=== PATIENT | female | born 1980 | race Two or more races ===

== ENCOUNTER 2017-07-08 16:49 | Emergency (ER) | payer MEDICAID ==
[~2017-07-08] VITALS: Ht 172.7 cm; Wt 115.7 kg
--- NOTE | 2017-07-08 17:18 | ER Report ---
History and Physical Time Seen By MD: 17:18 HPI/ROS CHIEF COMPLAINT: Right posterior knee pain HISTORY OF PRESENT ILLNESS: This is a 37-year-old female who presents to the emergency department for right posterior knee pain. Patient states that about 2 days ago she developed some right knee posterior knee pain and into the calf. She also noticed that her right calf and knee looked slightly larger than the left. She did talk to her primary care provider about this and they sent her over to the emergency department for further evaluation. Patient states that her knee is "achy". Patient has no other complaints no nausea, vomiting, diarrhea, aches, chills or diarrhea. REVIEW OF SYSTEMS: Constitutional: No fever, no chills. Eyes: No discharge. ENT: No sore throat. Cardiovascular: No chest pain, no palpitations. Respiratory: No cough, no shortness of breath. Gastrointestinal: No abdominal pain, no vomiting. Genitourinary: No hematuria. Musculoskeletal: As above. Skin: No rashes. Neurological: No headache. Allergies: Coded Allergies: codeine (Verified Allergy, Severe, FACE SWELLS, HYPERVENTILATE, DIFFICULTY BREATHING, 07/08/17) prednisone (Verified Allergy, Severe, LOSES SIGHT, 07/08/17) aspirin (Verified Allergy, Mild, 07/08/17) difficulty breathing Home Meds Active Scripts Lisinopril (LISINOPRIL) 10 Mg Tablet, 10 MG PO QDAY, #90 TAB 3 Refills Prov:DAVE APODACA MD 07/02/17 Glimepiride (GLIMEPIRIDE) 4 Mg Tablet, 4 MG PO QDAY, #90 TAB 3 Refills Prov:DAVE APODACA MD 07/02/17 Blood Sugar Diagnostic (BLOOD GLUCOSE TEST STRIP) 1 Each Strip, 1 EACH MC DAILY , #1 BOTTLE 11 Refills Prov:ALINE NINO APRN EDUCATION ANALYST-C 06/18/17 Lancets (FREESTYLE LANCETS) 1 Each Each, EACH MC DAILY, #1 11 Refills Prov:ALINE NINO APRN EDUCATION ANALYST-C 06/18/17 Fluticasone Prop 50 Mcg Ns (FLONASE 50 MCG NS) 16 Gm [place].susp, 1 SPRAY NS BID , #1 BOT 11 Refills Prov:DAVE APODACA MD 06/17/17 Diclofenac Sodium (DICLOFENAC SODIUM) 75 Mg Tablet.dr, 75 MG PO BID, #60 TAB Prov:DAVE APODACA MD 06/17/17 Insulin Glargine,Hum.rec.anlog (LANTUS SOLOSTAR) 100 Unit/1 Ml Insuln.pen, 20 UNIT SQ QHS, #1 CART Increase by 2 units every 2 days until fasting glucose is 130 or less. Maximum is 100 units. Prov:DAVE APODACA MD 06/17/17 Pen Needle, Diabetic, Safety (PEN NEEDLE) 1 Each Dis.needle, EACH , #90 3 Refills Prov:DAVE APODACA MD 06/17/17 Reported Medications Ibuprofen (IBUPROFEN) 200 Mg Tablet, 2-3 TAB PO Q6H, TAB 12/29/16 Past Medical/Surgical History Patient has a past medical and surgical history of GERD, UTIs, arthritis, broken back, chronic low back pain, diabetes type II, eczema. Reviewed Nurses Notes: Yes Hx Smoking: Yes (0.5 ppd, 20 years (used to be 1.5 ppd)) Smoking Status: Current: Every Day Smoker Exposure to Second Hand Smoke?: Yes Hx Substance Use Disorder: No Hx Alcohol Use: No Constitutional Vital Sign - Last 24 Hours 07/08/17 07/08/17 07/08/17 07/08/17 17:23 17:51 18:00 18:04 Temp 97.5 Pulse 88 76 Resp 14 B/P (MAP) 149/95 134/87 (103) 137/84 (101) Pulse Ox 96 96 O2 Delivery Room Air 07/08/17 07/08/17 07/08/17 07/08/17 18:19 18:30 18:54 19:00 Pulse 69 72 B/P (MAP) 124/78 (93) 123/70 (87) Pulse Ox 92 96 Physical Exam General Appearance: The patient is alert, has no immediate need for airway protection and no signs of toxicity. Eyes: Pupils equal and round no pallor or injection. ENT, Mouth: Mucous membranes are moist. Respiratory: There are no retractions, lungs are clear to auscultation. Cardiovascular: Regular rate and rhythm, no murmurs, clicks or rubs. Gastrointestinal: Abdomen is soft and non tender, no masses, bowel sounds normal. Neurological: Alert and oriented 4. Moving all extremities. Following all commands. No focal neuro deficits. Skin: Warm and dry, no rashes. Musculoskeletal: Neck is supple non tender. Extremities are nontender, nonswollen and have full range of motion. Left calf 42 cm, right calf 43 cm. Left knee 43 cm, right knee 46.5 cm. DIFFERENTIAL DIAGNOSIS: After history and physical exam differential diagnosis was considered for DVT, septic knee, cellulitis, muscle strain. Medical Decision Making EKG/Imaging Imaging PATIENT NAME: Jomar Morrell : 1980 MR: [id number] V: [id number] EXAM DATE: ORDERING PHYSICIAN: JUAN MALONE TECHNOLOGIST: Location: [facility] Patient: Jomar Morrell : 1980 Visit/Account:[id number] Date of Sevice: 07/08/2017 EXAMINATION: Right LOWER EXTREMITY VENOUS DOPPLER ULTRASOUND DATE: 07/08/2017 6:54 PM CLINICAL INFORMATION: Calf pain and swelling. REASON FOR STUDY: Evaluate for DVT. TECHNIQUE: Grayscale, color Doppler, and spectral Doppler ultrasound was performed of the lower extremity veins to evaluate for deep venous thrombosis. COMPARISON: None FINDINGS: The right common femoral, femoral, and popliteal veins are compressible with normal flow on color Doppler imaging. There is also normal Doppler flow of the profunda femoris and greater saphenous veins at the confluence with the common femoral vein. The right posterior tibial and peroneal veins demonstrate normal flow IMPRESSION: No evidence of deep venous thrombosis in the right lower extremity veins. Report Dictated By: Kimmy Fiore MD at 07/08/2017 6:54 PM Report E-Signed By: Kimmy Fiore MD at 07/08/2017 6:56 PM [id number] ED Course/Re-evaluation ED Course The patient was admitted to a room. A history of physical were obtained. Differential diagnoses were considered. An ultrasound of the right lower extremity was negative for DVT. I did review these results with the patient. The patient was given 1 g of Tylenol in the emergency department for her achy leg. Patient was instructed to follow-up with her primary care provider tomorrow for the calf pain and possibly drawing blood. Patient was also encouraged to return to the emergency department for any other concerns or worsening symptoms she may have. She had no other questions or concerns and was discharged home. Decision to Disposition Date: Jul 08, 2017 Decision to Disposition Time: 19:24 Depart Departure Latest Vital Signs Vital Signs Date Time Temp Pulse Resp B/P (MAP) Pulse Ox O2 Delivery O2 Flow Rate FiO2 07/08/17 19:00 123/70 (87) 07/08/17 18:54 72 96 07/08/17 17:23 97.5 14 Room Air Impression: Primary Impression: Right calf pain Condition: Improved Disposition: HOME OR SELF-CARE Referrals: DAVE APODACA MD (PCP) Patient Instructions: Muscle Cramp (ED) Additional Instructions: Drink plenty of water. Get plenty of rest. Follow-up with your primary care provider tomorrow to see if she would like to do blood work for the calf pain. The ultrasound of the right calf was negative for a clot. May return to the emergency department for any other concerns or worsening symptoms. JUAN MALONE EDUCATION ANALYST-BC Jul 08, 2017 17:18
[2017-07-08 19:00] VITALS: BP 123/70
--- NOTE | 2017-07-08 19:01 | RADIOLOGY IMAGING REPORT ---
FACILITY: [facility] [place] PATIENT NAME: Jomar Morrell : 1980 MR: [id number] V: [id number] EXAM DATE: ORDERING PHYSICIAN: JUAN MALONE TECHNOLOGIST: Location: [facility] [place] Patient: Jomar Morrell : 1980 Visit/Account:[id number] Date of Sevice: 07/08/2017 EXAMINATION: Right LOWER EXTREMITY VENOUS DOPPLER ULTRASOUND DATE: 07/08/2017 6:54 PM CLINICAL INFORMATION: Calf pain and swelling. REASON FOR STUDY: Evaluate for DVT. TECHNIQUE: Grayscale, color Doppler, and spectral Doppler ultrasound was performed of the lower extre mity veins to evaluate for deep venous thrombosis. COMPARISON: None FINDINGS: The right common femoral, femoral, and popliteal veins are compressible with normal flow on color Dop pler imaging. There is also normal Doppler flow of the profunda femoris and greater saphenous veins a t the confluence with the common femoral vein. The right posterior tibial and peroneal veins demonstrate normal flow IMPRESSION: No evidence of deep venous thrombosis in the right lower extremity veins. Report Dictated By: Kimmy Fiore MD at 07/08/2017 6:54 PM Report E-Signed By: Kimmy Fiore MD at 07/08/2017 6:56 PM [id number]
[2017-07-08] MEDS ORDERED: ACETAMINOPHEN 500 MG TAB PO ONE (19:15)
== END 2017-07-08 19:30 | disposition home or self-care (01) ==
LOC: ER 17:18
DX: M79.661 Pain in right lower leg (principal)
CPT/HCPCS: 99282

== ENCOUNTER → 2017-07-08 | Outpatient (CLI) | payer MEDICAID ==
[~2017-07-08] MED LIST: AMO500 PO; AMOX1TAB9; AUG500 PO; AUG875 PO; AZIT-101 PO; BACDS PO; BLOO-1037 MC; BLOO-1511 MC; CEP500 PO; CIP500 PO; CIPR-344 PO; CLI150 PO; CYC10 PO; CYCL-343 PO; CYCL10TA29 PO; DIAZ-305 PO; DICL-195 PO; DOXY-179 PO; FAMO-129 PO; FEXO-72 PO; FLU60SYR30 IM ONLY; FLUC100T35 PO; FLUC150T40 PO; FLUT16SP19 NS; GIC PO; GLIM2TAB43 PO; GLIM4TAB50 PO; GUAI118L14 PO; HYD2 PO; HYDR-3078 PO; HYDR-385 PO; HYDR-4305 PO; HYDR-4309 PO; HYDR25CA83 PO; IBUP-56 PO; IBUP800T37 PO; INSU100I30 SQ; KET10 PO; LANC-1295 MC; LANC-714 MC; LANS30CA70 PO; LEVO-85 PO; LIDO20SO25 MM; LISI-362 PO; LOR5 PO; LOR5/325 PO; LOR7.5/325 PO; LOR75 PO; MEDROL DOSE PACK; METF500T4 PO; MUPI22OI TP; NAP500 PO; NAPR-1043 PO; NAS20R NS; NO ROUTINE MEDS; NO RTN MEDS; OMEP-218 PO; ONDA4TAB PO; OXYC-865 PO; PAN20 PO; PAN40 PO; PEN1DIS. MC; PEN250 PO; PER PO; PHEN200T32 PO; PRED-314 PO; PRED20TA6 PO; PRO25 PO; PROM-110 PO; PROP20TA56 PO; RAN150 PO; RIZA10TA24 PO; SUC1 PO; SULF-198 PO; SUMA100T32 PO; TOPI-119 PO; TRA50 PO; TRAM-420 PO; VAL500 PO; ZOSTRIX HP56.6 GM TP; [UNRECOGNIZED DRUG - CODE] MC
== END ==
LOC: LAB 13:41
PROVIDERS: ATTEND Emergency Medicine
DX: Z02.9 Encounter for administrative examinations, unspecified (principal)

== ENCOUNTER → 2017-07-19 | Outpatient (CLI) | payer MEDICAID ==
[~2017-07-19] MED LIST changes: +AMOX-559 PO; +DOCU-416 PO; +INSU100I28 SQ; +OXYC-854 PO
[2017-07-19 17:16] LABS: PLATELET COUNT, AUTOMATED 244 K/uL (150-450)
== END ==
LOC: LAB 17:00
PROVIDERS: ATTEND Emergency Medicine
DX: M25.561 Pain in right knee (principal)
CPT/HCPCS: 36415; 82040; 82247; 82310; 82374; 82435; 82565; 82947; 84075; 84132; 84155; 84295; 84450; 84460; 84520; 85025; 86140

== ENCOUNTER → 2017-07-20 | Outpatient (CLI) | payer MEDICAID ==
[~2017-07-20] MED LIST changes: -AMOX-559 PO; -DOCU-416 PO; -INSU100I28 SQ; -OXYC-854 PO
--- NOTE | 2017-07-20 13:42 | RADIOLOGY IMAGING REPORT ---
FACILITY: [facility] PATIENT NAME: Jomar Morrell : 1980 MR: [id number] V: [id number] EXAM DATE: ORDERING PHYSICIAN: DAVE APODACA TECHNOLOGIST: [place] [facility] [place] Joamr Mor[place] : 1980 Visit/Account:[id number] Date of Sevice: 07/20/2017 CT ABDOMEN WITHOUT CONTRAST CLINICAL INFORMATION: Umbilical hernia pain TECHNIQUE: Axial CT images were obtained through the abdomen without administration of IV contrast. Reformatted coronal and sagittal images were also obtained. Dose Lowering Technique One of the following dose optimization techniques was utilized in the performance of this exam: Autom ated exposure control; adjustment of the mA and/or kV according to the patient's size; or use of an i terative reconstruction technique. Specific details can be referenced in the facility's radiology C T exam operational policy. COMPARISON: The 2016 FINDINGS: Lower lung brooks: Small amount of left basilar linear scarring unchanged Evaluation of the solid organs of the abdomen is limited without IV contrast. Liver: Appears unremarkable on this noncontrasted CT Biliary: Gallbladder appears contracted which could be related to a recent meal Pancreas: Normal appearance. Spleen: Accessory splenules Adrenal glands: Unremarkable. Kidneys / retroperitoneum: No evidence of nephrolithiasis or hydronephrosis Bowel / peritoneum / mesenteries: The visualized small and large bowel appear unremarkable. Lymph node assessment: There are shotty retroperitoneal lymph nodes although appears similar to the p rior study Vessels: No significant atherosclerotic calcification seen throughout a nonaneurysmal abdominal aorta and branches. Musculoskeletal / Body wall: There is an umbilical hernia containing fat.. There Also appears to be some omental fat that extends through the umbilical hernia opening however passes through the rectus sheath superior to the umbilicus. There is surrounding edema in the adjacent subcutaneous fat. Ther e is diastases of the abdominis rectus muscles in the infraumbilical region similar to the prior stud y IMPRESSION: 1. There is an umbilical hernia containing fat. There also appears to be some omental fat that has extended through the umbilical hernia opening however passes through the rectus sheath superior to th e umbilicus with surrounding edema in the subcutaneous fat.. This is best appreciated on the sagitta l images. Also noted is diastases of the abdominis rectus muscles in the infraumbilical region although similar to the prior study Shotty which peroneal lymph nodes appear stable Gallbladder appears contracted which could be related to a recent meal Report Dictated By: Zoë Solitario MD at 07/20/2017 12:56 PM Report E-Signed By: Zoë Solitario MD at 07/20/2017 1:37 PM KACYN:[email or web address]
== END ==
LOC: CT 11:11
PROVIDERS: ATTEND Emergency Medicine
DX: K42.9 Umbilical hernia without obstruction or gangrene (principal); R91.8 Other nonspecific abnormal finding of lung field
CPT/HCPCS: 74150

== ENCOUNTER 2017-08-13 15:52 | Emergency (ER) | payer MEDICAID ==
[2017-08-13] MEDS ORDERED: HYDROmorphone(ER ONLY) 1 MG/ML IVP ONE ×2 (16:15→16:50)
--- NOTE | 2017-08-13 16:21 | ER Report ---
History and Physical Time Seen By MD: 16:02 Hx. of Stated Complaint: HAD A CORTIZONE SHOT IN RIGHT KNEE AT 12:30 TODAY. PAIN IS UNBEARABLE AND KNEE IS SWELLING HPI/ROS CHIEF COMPLAINT: knee pain post cortisone injection HISTORY OF PRESENT ILLNESS: Pt has a bad right knee that she states she is follwed by Dr. Kemp at [facility]. Today at 1230 she had injection of cortisone into her r knee. PT has a known predisone allergy but states that she was told cortisone should be ok. States that she felt fine initially but soon after started wtih pain. Pts pain is getting worse and now with knee swelling. PT uncomfortable sharp and achy pain. No fevers. Pt crying due to pain. Pt called [facility] and was told it could be a reaction and sent to ed. REVIEW OF SYSTEMS: GEn: no fevers Muscleskeletal: + knee swelling, + knee pain Allergies: Coded Allergies: codeine (Verified Allergy, Severe, FACE SWELLS, HYPERVENTILATE, DIFFICULTY BREATHING, 08/13/17) prednisone (Verified Allergy, Severe, LOSES SIGHT, 08/13/17) aspirin (Verified Allergy, Mild, 08/13/17) difficulty breathing Home Meds Active Scripts Oxycodone Hcl/Acet 5/325 Mg (ENDOCET 5-325 TABLET) 1 Each Tablet, 1-2 EACH PO Q4 -6H Y for PAIN, #20 TAB Prov:AKUA BEE DO 08/13/17 Diclofenac Sodium (DICLOFENAC SODIUM) 75 Mg Tablet.dr, 75 MG PO BID, #60 TAB Prov:DAVE APODACA MD 08/02/17 Insulin Glargine,Hum.rec.anlog (LANTUS SOLOSTAR) 100 Unit/1 Ml Insuln.pen, 44 UNIT SQ QHS, #1 CART Increase by 2 units every 2 days until fasting glucose is 130 or less. Maximum is 100 units. Prov:DAVE APODACA MD 07/19/17 Lisinopril (LISINOPRIL) 10 Mg Tablet, 10 MG PO QDAY, #90 TAB 3 Refills Prov:DAVE APODACA MD 07/02/17 Glimepiride (GLIMEPIRIDE) 4 Mg Tablet, 4 MG PO QDAY, #90 TAB 3 Refills Prov:DAVE APODACA MD 07/02/17 Blood Sugar Diagnostic (BLOOD GLUCOSE TEST STRIP) 1 Each Strip, 1 EACH MC DAILY , #1 BOTTLE 11 Refills Prov:ALINE NINO APRNP-C 06/18/17 Lancets (FREESTYLE LANCETS) 1 Each Each, EACH MC DAILY, #1 11 Refills Prov:ALINE NINO APRN SPECIAL EDUCATION SUPERVISOR-C 06/18/17 Fluticasone Prop 50 Mcg Ns (FLONASE 50 MCG NS) 16 Gm [place].susp, 1 SPRAY NS BID , #1 BOT 11 Refills Prov:DAVE APODACA MD 06/17/17 Pen Needle, Diabetic, Safety (PEN NEEDLE) 1 Each Dis.needle, EACH MC, #90 3 Refills Prov:DAVE APODACA MD 06/17/17 Reported Medications Ibuprofen (IBUPROFEN) 200 Mg Tablet, 2-3 TAB PO Q6H, TAB 12/29/16 Past Medical/Surgical History pmhx: dm, htn, pud, hernia Pshx: non contrib Reviewed Nurses Notes: Yes Old Medical Records Reviewed: Yes Hx Smoking: Yes (0.5 ppd, 20 years (used to be 1.5 ppd)) Smoking Status: Current: Every Day Smoker Exposure to Second Hand Smoke?: Yes Hx Substance Use Disorder: No Hx Alcohol Use: No Constitutional Vital Sign - Last 24 Hours 08/13/17 08/13/17 08/13/17 08/13/17 16:03 16:04 16:07 16:22 Temp 100.0 Pulse 115 99 ??? Resp 20 B/P (MAP) 146/101 146/101 (116) Pulse Ox 95 94 O2 Delivery Room Air 08/13/17 08/13/17 08/13/17 08/13/17 16:36 16:37 16:52 17:07 Pulse 89 88 ??? B/P (MAP) 150/75 (100) Pulse Ox 95 97 Intake and Output 08/13/17 08/13/17 08/14/17 15:00 23:00 07:00 Intake Total 50 ml Balance 50 ml Physical Exam General appearance: Alert no distress. Right knee: There is mild swelling. There is small effusion. There is no obvious deformity of the knee. There is moderate tenderness to the patella. The joint is stable with no comparable ligamentous laxity to the knee but pain with range of motion There is no tenderness proximal or distal to the knee. Neurologic exam: The patient has normal sensation distal to the injury. Vascular exam: Normal pulses and capillary refill in the foot DIFFERENTIAL DIAGNOSIS: After history and physical exam differential diagnosis was considered for medication reaction, infection Medical Decision Making ED Course/Re-evaluation Clinical Indication for ER IV: IV Access ED Course 08/13/2017 4:24:[address] Samayoa, orthopedics color control operator for [facility], who states it is likely an allergic reaction which could cause pain for 24 hours or so then improve. Recommend benadryl and toradol. Did not feel infection would be causing the pain so close to the injection. 08/13/2017 4:35:30 pm Spoke wt pt and she refusing toradol due to pt has surgery next week for hernia repair and was told to take no NSAIDs. she is agreeable to benadryl. states she has had percocet before and it helped. 08/13/2017 4:50:57 pm Pt still in pain. Pt is willing to have morphine or dilaudid. states her allergy is a headache "i prefer to have a headache then my knee pain". 08/13/2017 5:00:[address] Samayoa , orthopedics is in the room seeing the patient. 08/13/2017 5:05:[address] Samayoa recommend benadryl for next 24 hours and pain medication. Decision to Disposition Date: Aug 13, 2017 Decision to Disposition Time: 17:20 Depart Departure Latest Vital Signs Vital Signs Date Time Temp Pulse Resp B/P (MAP) Pulse Ox O2 Delivery O2 Flow Rate FiO2 08/13/17 17:07 ??? 08/13/17 16:52 97 08/13/17 16:36 150/75 (100) 08/13/17 16:03 100.0 20 Room Air Impression: Primary Impression: Adverse reaction to drug Additional Impression: Knee pain, acute Condition: Improved Disposition: HOME OR SELF-CARE Referrals: DAVE APODACA MD (PCP) [facility] PT 5 Days New Scripts Oxycodone Hcl/Acet 5/325 Mg (ENDOCET 5-325 TABLET) 1 Each Tablet 1-2 EACH PO Q4-6H Y for PAIN, #20 TAB Prov: AKUA BEE DO 08/13/17 Patient Instructions: Adverse Drug Reaction (GEN) Additional Instructions: You are having an adverse reaction to your cortisone shot. Benadryl 25 mg every 6 hours for next 24 hours then use as needed for pain and swelling. Percocet one or two every 4 hours as needed for pain. Follow up with [facility]. Return as needed. Problem Qualifiers Primary Impression: Adverse reaction to drug Encounter type: initial encounter Qualified Codes: T88.7XXA - Unspecified adverse effect of drug or medicament, initial encounter Additional Impression: Knee pain, acute Laterality: right Qualified Codes: M25.561 - Pain in right knee AKUA BEE DO Aug 13, 2017 16:20
[2017-08-13] MEDS ORDERED: diphenhydrAMINE 50 MG/ML VIAL IVP ONE (16:25)
[2017-08-13] MEDS ORDERED: KETOROLAC 30 MG/ML VIAL IVP ONE (16:25)
[2017-08-13] MEDS ORDERED: FAMOTIDINE(*) 20MG/50ML PREMIX 50 ML IVPB ONE (16:30)
[2017-08-13] MEDS ORDERED: PER PO ×2 (17:09→17:11)
[2017-08-13] MEDS ORDERED: OXYC-854 PO (17:12)
[2017-08-13] MEDS ORDERED: oxyCODONE/ACETAMIN 5/325MG TH 2 TAB/BOTTLE PO ONE (17:25)
[2017-08-13 17:32] VITALS: BP 132/85
[2017-08-14] MEDS ORDERED: INSU100I28 SQ (22:54)
== END 2017-08-13 17:37 | disposition home or self-care (01) ==
LOC: ER 16:11
DX: T88.7XXA Unspecified adverse effect of drug or medicament, initial encounter (principal); M25.561 Pain in right knee
CPT/HCPCS: 96374; 96375; 99283; J1170; J1200; J3490

== ENCOUNTER 2017-08-14 20:11 | Emergency (ER) | payer MEDICAID ==
[~2017-08-14] VITALS: Ht 172.7 cm; Wt 115.2 kg
[~2017-08-14 20:11] MED LIST changes: +OXYC-854 PO
--- NOTE | 2017-08-14 20:22 | ER Report ---
History and Physical Time Seen By MD: 20:21 HPI/ROS CHIEF COMPLAINT: elevated blood sugars. HISTORY OF PRESENT ILLNESS: This is a 37 year old female. She had a steroid injection in her knee and has had consistently elevated blood sugars since then. Today has been in the 300s and up above 400 as well. Polydipsia and polyuria. She take Lantus, but does not take short acting insulin. She talked to the primary care provider mercerizing range controller who said she should come to the ER for further evaluation. She has no chest pain, shortness of breath, or cough. No fevers. She did have an adverse reaction to the knee steroid injection because she is allergic to prednisone. She has had no altered mental status or confusion. Allergies: Coded Allergies: codeine (Verified Allergy, Severe, FACE SWELLS, HYPERVENTILATE, DIFFICULTY BREATHING, 08/14/17) prednisone (Verified Allergy, Severe, LOSES SIGHT, 08/14/17) aspirin (Verified Allergy, Mild, 08/14/17) difficulty breathing Home Meds Active Scripts Insulin Lispro 3 Ml Prefilled (HUMALOG 3 ML PEN) 100 Unit/1 Ml Insuln.pen, 100 UNIT SQ DIRECTED, #1 DIS.SYR 0 Refills Prov:UMAIR MELGAR MD 08/14/17 Oxycodone Hcl/Acet 5/325 Mg (ENDOCET 5-325 TABLET) 1 Each Tablet, 1-2 EACH PO Q4 -6H Y for PAIN, #20 TAB Prov:AKUA BEE DO 08/13/17 Diclofenac Sodium (DICLOFENAC SODIUM) 75 Mg Tablet.dr, 75 MG PO BID, #60 TAB Prov:DAVE APODACA MD 08/02/17 Insulin Glargine,Hum.rec.anlog (LANTUS SOLOSTAR) 100 Unit/1 Ml Insuln.pen, 44 UNIT SQ QHS, #1 CART Increase by 2 units every 2 days until fasting glucose is 130 or less. Maximum is 100 units. Prov:DAVE APODACA MD 07/19/17 Lisinopril (LISINOPRIL) 10 Mg Tablet, 10 MG PO QDAY, #90 TAB 3 Refills Prov:DAVE APODACA MD 07/02/17 Glimepiride (GLIMEPIRIDE) 4 Mg Tablet, 4 MG PO QDAY, #90 TAB 3 Refills Prov:DAVE APODACA MD 07/02/17 Blood Sugar Diagnostic (BLOOD GLUCOSE TEST STRIP) 1 Each Strip, 1 EACH MC DAILY , #1 BOTTLE 11 Refills Prov:ALINE NINO APRN-C 06/18/17 Lancets (FREESTYLE LANCETS) 1 Each Each, EACH MC DAILY, #1 11 Refills Prov:ALINE NINO APRN RECEIVABLE MANAGER-C 06/18/17 Fluticasone Prop 50 Mcg Ns (FLONASE 50 MCG NS) 16 Gm [place].susp, 1 SPRAY NS BID , #1 BOT 11 Refills Prov:DAVE APODACA MD 06/17/17 Pen Needle, Diabetic, Safety (PEN NEEDLE) 1 Each Dis.needle, EACH MC, #90 3 Refills Prov:DAVE APODACA MD 06/17/17 Discontinued Reported Medications Ibuprofen (IBUPROFEN) 200 Mg Tablet, 2-3 TAB PO Q6H, TAB 12/29/16 Reviewed Nurses Notes: Yes Hx Smoking: Yes (0.5 ppd, 20 years (used to be 1.5 ppd)) Smoking Status: Current: Every Day Smoker Exposure to Second Hand Smoke?: Yes Hx Substance Use Disorder: No Hx Alcohol Use: No Constitutional Vital Sign - Last 24 Hours 08/14/17 08/14/17 08/14/17 08/14/17 20:16 20:26 20:41 20:56 Temp 98.2 Pulse 84 82 82 77 Resp 20 B/P (MAP) 142/71 Pulse Ox 96 95 95 94 08/14/17 08/14/17 08/14/17 08/14/17 21:11 21:26 21:31 21:46 Pulse 75 75 74 68 Pulse Ox 95 95 97 96 08/14/17 08/14/17 08/14/17 08/14/17 22:01 22:16 22:21 22:36 Pulse 63 66 67 68 Pulse Ox 95 94 93 92 08/14/17 08/14/17 08/14/17 22:51 23:06 23:21 Pulse 68 61 66 Pulse Ox 94 97 94 Physical Exam General Appearance: The patient is alert. No acute distress. Non-toxic in appearance. Eyes: Pupils are equal, round. No pallor, injection or icterus. ENT: Mucous membranes are moist. Normal oral mucosa. Posterior oropharynx is normal. Respiratory: Lungs are clear to auscultation. Breathing easily, nonlabored. Cardiovascular: Regular rate and rhythm. No murmurs, gallops or rubs. Gastrointestinal: Abdomen is soft and non tender. Nondistended. Normal active bowel sounds. Neurological: Alert and oriented x3. No focal neurologic deficits Skin: Warm and dry. DIFFERENTIAL DIAGNOSIS: After history and physical exam, differential diagnosis was considered for hyperglycemia due to the steroid injection she had recently. Vital signs look good and there is no sign of toxicity. Discussed with the patient the need to add in some short acting insulin now for coverage while her sugars are high, and may be something to consider windows administrator as well. Medical Decision Making Data Points Laboratory Hematology Test 08/14/17 22:48 Whole Blood Glucose 290 mg/DL (75-110) Chemistry Test 08/14/17 22:48 Whole Blood Glucose 290 mg/DL (75-110) ED Course/Re-evaluation ED Course Several blood sugars given. Patient was given Humalog 8units subcutaneous injection and monitored sugars for a few hours. Vitals remained stable and her blood sugar came down well, although we were cautious to not be too aggressive. Sliding scale insulin instructions given for her to use until she follows up with her primary care provider. Decision to Disposition Date: Aug 14, 2017 Decision to Disposition Time: 22:15 Depart Departure Latest Vital Signs Vital Signs Date Time Temp Pulse Resp B/P (MAP) Pulse Ox O2 Delivery O2 Flow Rate FiO2 08/14/17 23:21 66 94 08/14/17 20:16 98.2 20 142/71 Impression: Primary Impression: Hyperglycemia due to type 2 diabetes mellitus Condition: Improved Disposition: HOME OR SELF-CARE Referrals: DAVE APODACA MD (PCP) New Scripts Insulin Lispro 3 Ml Prefilled (HUMALOG 3 ML PEN) 100 Unit/1 Ml Insuln.pen 100 UNIT SQ DIRECTED, #1 DIS.SYR 0 Refills Prov: UMAIR MELGAR MD 08/14/17 Patient Instructions: Diabetic Hyperglycemia (ED) Additional Instructions: We are going to have you start Humalog insulin that you will use on a sliding scale to cover for elevated blood sugars. Blood glucose level Insulin dose 80 - 200 no insulin 201 - 250 2 units 251 - 300 4 units 301 - 350 6 units 351 - 400 8 units 401 - 450 10 units above 450 12 units and call your doctor Problem Qualifiers Primary Impression: Hyperglycemia due to type 2 diabetes mellitus Diabetes mellitus assisted insulin use: with windows administrator use Qualified Codes: E11.65 - Type 2 diabetes mellitus with hyperglycemia; Z79.4 - USP ( current) use of insulin UMAIR MELGAR MD Aug 14, 2017 20:22
[2017-08-14] MEDS ORDERED: INS HUM LISPRO 100U/ML (ER ONLY) 10 ML VIAL SUBQ ONE (20:40)
[2017-08-14] MEDS ORDERED: INSU100I28 SQ (22:54)
[2017-08-14 23:27] VITALS: BP 123/73
== END 2017-08-14 23:30 | disposition home or self-care (01) ==
LOC: ER 20:26
DX: E11.65 Type 2 diabetes mellitus with hyperglycemia (principal); Z79.4 Long term (current) use of insulin
CPT/HCPCS: 36416; 82948; 96372; 99283; J1815

== ENCOUNTER 2017-08-19 03:46 | Day surgery (SDC) | payer MEDICAID ==
[~2017-08-19] VITALS: Ht 172.7 cm; Wt 112.5 kg
[~2017-08-19 03:46] MED LIST changes: +INSU100I28 SQ
[2017-08-19] MEDS ORDERED: ceFAZolin(*) 1 GM VIAL 3 GM in NS(*) 0.9% 100 ML BAG 100 ML IVPB ONE (06:45)
[2017-08-19] MEDS ORDERED: FAMOTIDINE 20 MG TAB PO ONE (06:45)
[2017-08-19] MEDS ORDERED: NORMOSOL R SOLN(*) 1000 ML BAG 1,000 ML IV PRN (06:45)
[2017-08-19] MEDS ORDERED: LIDOCAINE/SOD BICARB 8.4% SYR ID ONE (06:45)
[2017-08-19] MEDS ORDERED: MIDAZOLAM 2 MG/2 ML VIAL IVP PRN (06:45)
[2017-08-19] MEDS ORDERED: PROPOFOL EMUL(*) 10MG/ML 20 ML 20 ML ONE (09:42)
[2017-08-19] MEDS ORDERED: SUGAMMADEX SOD 200 MG/2 ML SDV ONE (09:42)
[2017-08-19] MEDS ORDERED: ONDANSETRON 4 MG/2 ML VIAL ONE (09:42)
[2017-08-19] MEDS ORDERED: DEXAMETHASONE SOD 4 MG/ML VIAL ONE (09:42)
[2017-08-19] MEDS ORDERED: ROCURONIUM BROM 10 MG/ML 10 ML ONE (09:42)
[2017-08-19] MEDS ORDERED: LIDOCAINE MPF 1% 5 ML VIAL ONE (09:42)
[2017-08-19] MEDS ORDERED: fentaNYL CITR 250 MCG/5 ML AMP ONE (09:43)
[2017-08-19 10:46] VITALS: BP 140/102
[2017-08-19] MEDS ORDERED: ROPIVACAINE 0.5% 20 ML VIAL ONE (11:01)
[2017-08-19] MEDS ORDERED: BACITRACIN OINT 15 GM TUBE TP ONE (11:02)
[2017-08-19] MEDS ORDERED: KETAMINE HCL 200 MG/20 ML MDV ONE (11:30)
[2017-08-19] MEDS ORDERED: OXYC-854 PO (12:11)
[2017-08-19] MEDS ORDERED: DOCU-416 PO (12:11)
--- NOTE | 2017-08-19 12:13 | Short(Outpt) Discharge Summary ---
Discharge Summary Reason for Hosp/Final Diag: (1) Umbilical hernia Status: Chronic Hospital Course & Plan: UH repaired without problems. Departure Discharge to: Home, Self Care Discharge Instructions Home Meds Active Scripts Docusate Sodium (COLACE) 100 Mg Capsule, 1 CAP PO BID, #30 CAPSULE 0 Refills Prov:KARLA HARRELL MD 08/19/17 Oxycodone Hcl/Acet 5/325 Mg (ENDOCET 5-325 TABLET) 1 Each Tablet, 1-2 TAB PO Q4H Y for PAIN, #30 TAB 0 Refills Prov:KARLA HARRELL MD 08/19/17 Insulin Lispro 3 Ml Prefilled (HUMALOG 3 ML PEN) 100 Unit/1 Ml Insuln.pen, 100 UNIT SQ DIRECTED, #1 DIS.SYR 0 Refills Prov:UMAIR MELGAR MD 08/14/17 Diclofenac Sodium (DICLOFENAC SODIUM) 75 Mg Tablet.dr, 75 MG PO BID, #60 TAB Prov:DAVE APODACA MD 08/02/17 Insulin Glargine,Hum.rec.anlog (LANTUS SOLOSTAR) 100 Unit/1 Ml Insuln.pen, 44 UNIT SQ QHS, #1 CART Increase by 2 units every 2 days until fasting glucose is 130 or less. Maximum is 100 units. Prov:DAVE APODACA MD 07/19/17 Lisinopril (LISINOPRIL) 10 Mg Tablet, 10 MG PO QDAY, #90 TAB 3 Refills Prov:DAVE APODACA MD 07/02/17 Glimepiride (GLIMEPIRIDE) 4 Mg Tablet, 4 MG PO QDAY, #90 TAB 3 Refills Prov:DAVE APODACA MD 07/02/17 Blood Sugar Diagnostic (BLOOD GLUCOSE TEST STRIP) 1 Each Strip, 1 EACH MC DAILY , #1 BOTTLE 11 Refills Prov:ALINE NINO APRN-C 06/18/17 Lancets (FREESTYLE LANCETS) 1 Each Each, EACH MC DAILY, #1 11 Refills Prov:ALINE NINO APRN-C 06/18/17 Fluticasone Prop 50 Mcg Ns (FLONASE 50 MCG NS) 16 Gm [place].susp, 1 SPRAY NS BID , #1 BOT 11 Refills Prov:DAVE APODACA MD 06/17/17 Pen Needle, Diabetic, Safety (PEN NEEDLE) 1 Each Dis.needle, EACH , #90 3 Refills Prov:PAULIEDAVE MD 06/17/17 Discontinued Reported Medications Ibuprofen (IBUPROFEN) 200 Mg Tablet, 2-3 TAB PO Q6H, TAB 12/29/16 Follow up Referrals: General Surgery - 09/03/17 @ Surgery, General with Karla Harrell Md You have a follow up appointment scheduled with Dr. Harrell on 09/03/17, at 9:15am. Diet: Regular Activity: No Heavy Lifting Special Instructions: You may remove the white surgical dressing on 08/21/17, then you can shower. After showering, leave the incision open to air but leave the steristrips in place until they fall off on their own. Do not immerse the incisions for 2 weeks. Avoid any activity that involves straining or lifting more than 10 pounds for 4 weeks after surgery. Problem Qualifiers (1) Umbilical hernia: Obstruction and gangrene presence: without obstruction or gangrene Qualified Codes: K42.9 - Umbilical hernia without obstruction or gangrene KARLA HARRELL MD Aug 19, 2017 12:13
[2017-08-19] MEDS ORDERED: fentaNYL CITR 100 MCG/2 ML AMP ONE ×2 (12:14→12:45)
--- NOTE | 2017-08-19 12:18 | Post Operative Progress Note ---
Post Operative Progress Note Date: Aug 19, 2017 Time: 12:13 Surgeon: Mehrdad Dictation number: [id number] Anesthesia: LMA by Dr. Nolan Pre-Op Diagnosis: UH Post-Op Diagnosis: WILLIAM Findings: C/W dx, 1cm defect Procedure(s): UH repair, no mesh Specimen Removed:(May be N/A): None Complications: None Fluids: See anesthesia record Estimated Blood Loss: Minimal Date OP Note Dictated: Aug 19, 2017 Time OP Note Dictated: 12:14 KARLA HARRELL MD Aug 19, 2017 12:18
[2017-08-19] MEDS ORDERED: PROMETHAZINE 25 MG/ML 1 ML AMP ONE (12:42)
[2017-08-19 13:21] VITALS: BP 126/77
[2017-08-19 13:27] VITALS: BP 134/79
[2017-08-19 13:28] VITALS: BP 128/90
--- NOTE | 2017-08-19 17:23 | OPERATIVE REPORT 1 ---
EVENT DATE: August 19, 2017 SURGEON: Anupam Cronin MD ANESTHESIOLOGIST: Cristhian Butcher MD ANESTHESIA: LMA. PREOPERATIVE DIAGNOSIS Umbilical hernia. POSTOPERATIVE DIAGNOSIS Umbilical hernia. PROCEDURE PERFORMED Umbilical hernia repair, no mesh. COMPLICATIONS None. CONDITION Stable. BLOOD LOSS Minimal. INDICATIONS This is a 37-year-old female who has been having periumbilical abdominal pain. She was seen in the Emergency Room where they did a CT scan which revealed an umbilical hernia. She was referred to me to discuss repair. DESCRIPTION OF PROCEDURE The patient was brought to the operating room and placed supine on the operating table. LMA anesthesia was administered, and her abdomen was prepped and draped in a sterile fashion. A timeout was completed, and I injected the supraumbilical skin with 0.5% ropivacaine plain. I made a curvilinear frowning face-type incision in the superior umbilical rim and dissected down through the dermis and subcutaneous fat. I dissected around the umbilicus and raised the umbilicus up from the underlying fascia, identified the fascial defect and cleaned this off both superficially and deep. The fascia was less than 1 cm in diameter. At this point, I elected not to put any mesh in as I would have had to make the defect bigger to put mesh in a retrofascial position. I then closed the fascial defect in a transverse fashion with interrupted 0 Ethibond sutures. I irrigated and dried the wound and then closed the skin with 4-0 Monocryl running subcuticular sutures. The skin was cleaned and dried, and Steri-Strips were applied, followed by a sterile surgical dressing. The patient was then awakened and LMA removed. She was transported to the recovery room in stable condition having tolerated the procedure without any apparent problems. ANUSHA
== END 2017-08-19 13:21 | disposition home or self-care (01) ==
LOC: OR 03:46
PROVIDERS: ATTEND Surgery
DX: K42.9 Umbilical hernia without obstruction or gangrene (principal); E11.9 Type 2 diabetes mellitus without complications; I10 Essential (primary) hypertension
CPT/HCPCS: 36415; 36416; 49585; 82948; 83036; J0690; J1100; J2001; J2405; J2550; J2704; J2795; J3010; J3490; J7050; 82310; 82374; 82435; 82565; 82947; 84132; 84295; 84520

== ENCOUNTER → 2017-09-15 | Outpatient (CLI) | payer MEDICAID ==
[~2017-09-15] MED LIST changes: +AMOX-559 PO; +DOCU-416 PO
[2017-09-15 10:02] LABS: PLATELET COUNT, AUTOMATED 262 K/uL (150-450)
--- NOTE | 2017-09-15 11:25 | EKG ---
FACILITY: [facility] PATIENT NAME: NAVARRO ALANIZ : [id number] MR: [id number] V: [id number] EXAM DATE: ORDERING PHYSICIAN: DAVE APODACA TECHNOLOGIST: ANDREINA Test Reason : CHEST PAIN Blood Pressure : / mmHG Vent. Rate : 070 BPM Atrial Rate : 070 BPM P-R Int : 150 ms QRS Dur : 090 ms QT Int : 400 ms P-R-T Axes : 007 055 038 degrees QTc Int : 432 ms Normal sinus rhythm Normal ECG When compared with ECG of 02-JUL-2016 19:38, Previous ECG has undetermined rhythm, needs review Referred By: Confirmed By:
--- NOTE | 2017-09-15 11:31 | RADIOLOGY IMAGING REPORT ---
FACILITY: [facility] PATIENT NAME: Jomar Morrell : 1980 MR: [id number] V: [id number] EXAM DATE: ORDERING PHYSICIAN: DAVE APODACA TECHNOLOGIST: Location: [facility] Patient: Jomar Morrell : 1980 Visit/Account:[id number] Date of Sevice: 09/15/2017 Exam type: SOFT TISSUE NON-SPECIFIC History: Abdomen pain in the periumbilical soft tissues Comparison: None. Findings: There is a periumbilical incision along the anterior abdominal wall. Just deep to the incision in th e location of swelling and erythema is a 2.2 x 1 x 2.9 cm collection which may represent a phlegmon, seroma or abscess. IMPRESSION: 1. 2.2 x 1 x 2.9 cm collection just deep to the periumbilical incision which could represent a phleg mon, seroma or abscess Report Dictated By: Zoë Solitario MD at 09/15/2017 11:26 AM Report E-Signed By: Zoë Solitario MD at 09/15/2017 11:28 AM WSN:[id number]
== END ==
LOC: LAB 09:33
PROVIDERS: ATTEND Emergency Medicine
DX: E11.9 Type 2 diabetes mellitus without complications (principal); R07.9 Chest pain, unspecified; R10.819 Abdominal tenderness, unspecified site
CPT/HCPCS: 76999; 82040; 82247; 82310; 82374; 82435; 82565; 82947; 83036; 84075; 84132; 84155; 84295; 84450; 84460; 84484; 84520; 85025; 85379

== ENCOUNTER 2018-03-04 16:10 | Emergency (ER) | payer MEDICAID ==
--- NOTE | 2018-03-04 16:25 | ER Report ---
History and Physical Time Seen By MD: 16:20 Hx. of Stated Complaint: N/V/D since Wednesday, cough productive of green sputum since Wed. HPI/ROS CHIEF COMPLAINT: Cough, shortness of breath, nausea, vomiting, back pain, abdominal pain. HISTORY OF PRESENT ILLNESS: 38-year-old female patient presents to emergency room with complaint of cough, shortness of breath, nausea, vomiting, back pain, abdominal pain. Patient states this been going on for the past 3 days. Patient states she's been having shortness of breath as well as fevers. She states that she often coughs so hard that she vomits. Patient has taken any medication for this. She did call her primary care's office to see what [id number] medication she take Toprol cough was directed to come to the emergency room. Patient states that any type of activities his make her more short of breath. She has not taken any medication for this as of this point. REVIEW OF SYSTEMS: Respiratory: As noted above Cardiovascular: No chest pain, no palpitations. Gastrointestinal: As noted above Musculoskeletal: No back pain. Allergies: Coded Allergies: codeine (Verified Allergy, Severe, FACE SWELLS, HYPERVENTILATE, DIFFICULTY BREATHING, 03/04/18) prednisone (Verified Allergy, Severe, LOSES SIGHT, 03/04/18) aspirin (Verified Allergy, Mild, 03/04/18) difficulty breathing Home Meds Active Scripts Albuterol Sulfate (VENTOLIN HFA) 18 Gm Inh, 2 PUFF INH Q4-6H PRN for SHORTNESS OF BREATH, #1 INH Prov:CLAUDIA DECKER [facility] 03/04/18 Hydrocodone Bit/Acetaminophen (HYDROCODON-ACETAMINOPHEN 5-325) 1 Each Tablet, 1 EACH PO Q4-6H PRN for PAIN, #10 TAB Prov:CLAUDIA DECKER [facility] 03/04/18 Azithromycin 250 Mg Tab (AZITHROMYCIN 250 MG TAB) 250 Mg Tablet, 1 TAB PO QDAY, #6 TAB Take 2 tabs today and then 1 tab a day until gone. Prov:CLAUDIA DECKER [facility] 03/04/18 Insulin Glargine 100 Un/Ml Pen (LANTUS SOLOSTAR PEN) 100 Unit/1 Ml Insuln.pen, 44 UNIT SQ QHS, #1 BOX 3 Refills Increase by 2 units every 2 days until fasting glucose is 130 or less. Maximum is 100 units. Prov:DAVE APODACA MD 09/27/17 Amoxicillin/Pot Clav 875-125 Mg Tab (AUGMENTIN 875-125 TABLET) 1 Each Tablet, 1 TAB PO Q12H, #20 TAB 0 Refills Prov:KARLA HARRELL MD 09/13/17 Blood Sugar Diagnostic (BLOOD GLUCOSE TEST STRIP) 1 Each Strip, 1 EACH MC QID, #1 BOTTLE 11 Refills Prov:DAVE APODACA MD 08/26/17 Lancets (FREESTYLE LANCETS) 1 Each Each, EACH QID, #1 11 Refills Prov:DAVE APODACA MD 08/26/17 Docusate Sodium (COLACE) 100 Mg Capsule, 1 CAP PO BID, #30 CAPSULE 0 Refills Prov:KARLA HARRELL MD 08/19/17 Insulin Lispro 100 Un/Ml Pen (HUMALOG 3 ML PEN) 100 Unit/1 Ml Insuln.pen, 100 UNIT SQ DIRECTED, #1 DIS.SYR 0 Refills Prov:UMAIR MELGAR MD 08/14/17 Diclofenac Sodium (DICLOFENAC SODIUM) 75 Mg Tablet.dr, 75 MG PO BID, #60 TAB Prov:DAVE APODACA MD 08/02/17 Lisinopril (LISINOPRIL) 10 Mg Tablet, 10 MG PO QDAY, #90 TAB 3 Refills Prov:DAVE APODACA MD 07/02/17 Glimepiride (GLIMEPIRIDE) 4 Mg Tablet, 4 MG PO QDAY, #90 TAB 3 Refills Prov:DAVE APODACA MD 07/02/17 Fluticasone Prop 50 Mcg Ns (FLONASE 50 MCG NS) 16 Gm [place].susp, 1 SPRAY NS BID, #1 BOT 11 Refills Prov:DAVE APODACA MD 06/17/17 Pen Needle, Diabetic, Safety (PEN NEEDLE) 1 Each Dis.needle, EACH MC, #90 3 Refills Prov:DAVE APODACA MD 06/17/17 Past Medical/Surgical History Patient has a past medical history of hypertension, ulcers, reflux, frequent UTI, arthritis, back fracture, chronic low back pain, type 2 diabetes, eczema. Patient has surgical history of hysterectomy, tonsillectomy. Patient has a family medical history of cancer, CAD, stroke, diabetes, psychiatric problems. Reviewed Nurses Notes: Yes Hx Smoking: Yes (0.5 ppd, 20 years (used to be 1.5 ppd)) Smoking Status: Current: Every Day Smoker Exposure to Second Hand Smoke?: Yes Hx Substance Use Disorder: No Hx Alcohol Use: No Constitutional Vital Sign - Last 24 Hours 03/04/18 03/04/18 03/04/18 03/04/18 16:10 16:15 16:19 16:20 Temp 98.2 Pulse ? 105 106 Resp 20 11 B/P (MAP) 158/110 (126) 158/110 Pulse Ox 95 95 O2 Delivery Room Air 03/04/18 03/04/18 03/04/18 03/04/18 16:25 16:30 16:35 16:40 Pulse 104 109 106 112 Resp 13 9 16 15 Pulse Ox 95 94 95 95 03/04/18 03/04/18 03/04/18 03/04/18 16:45 16:48 16:50 16:55 Pulse 107 101 110 110 Resp 15 16 22 9 Pulse Ox 100 92 97 03/04/18 03/04/18 03/04/18 03/04/18 17:00 17:00 17:05 17:10 Pulse 99 96 102 111 Resp 8 18 24 17 Pulse Ox 100 95 93 03/04/18 03/04/18 03/04/18 03/04/18 17:13 17:15 17:20 17:25 Pulse 117 108 111 Resp 13 23 18 B/P (MAP) 129/84 (99) Pulse Ox 92 95 95 03/04/18 03/04/18 03/04/18 03/04/18 17:30 17:35 17:40 17:45 Pulse 111 106 112 106 Resp 19 12 24 11 B/P (MAP) 132/106 (115) Pulse Ox 92 96 03/04/18 03/04/18 03/04/18 03/04/18 17:50 17:55 18:00 18:05 Pulse 106 110 ??? 107 Resp 10 22 39 B/P (MAP) 133/86 (102) Pulse Ox 95 94 80 95 03/04/18 03/04/18 03/04/18 03/04/18 18:10 18:15 18:20 18:25 Pulse 105 102 106 115 Resp 7 20 12 12 Pulse Ox 91 94 95 97 03/04/18 03/04/18 18:30 18:35 Pulse 106 101 Resp 14 8 B/P (MAP) 140/81 (100) Pulse Ox 92 95 Physical Exam General Appearance: The patient is alert, has no immediate need for airway protection and no current signs of toxicity. Respiratory: Chest is non tender, lungs are diminished in the bases to auscultation. Cardiac: regular rate and rhythm Gastrointestinal: Abdomen is soft and non tender, no masses, bowel sounds normal. Musculoskeletal: Neck: Neck is supple and non tender. Extremities have full range of motion and are non tender. Skin: No rashes or lesions. DIFFERENTIAL DIAGNOSIS: After history and physical exam differential diagnosis was considered for shortness of breath including but not limited to pulmonary infectious process, COPD, asthma, pulmonary embolus and congestive heart failure. Medical Decision Making Data Points Result Diagram: 03/04/18 1700 03/04/18 1700 Laboratory Hematology Test 03/04/18 17:00 Red Blood Count 5.61 M/uL (4.17-5.56) Mean Corpuscular Volume 83.6 fL (80.0-96.0) Mean Corpuscular Hemoglobin 28.6 pg (26.0-33.0) Mean Corpuscular Hemoglobin Concent 34.2 g/dL (32.0-36.0) Red Cell Distribution Width 13.7 % (11.5-14.5) Mean Platelet Volume 8.4 fL (7.2-11.1) Neutrophils (%) (Auto) 67.3 % (39.4-72.5) Lymphocytes (%) (Auto) 25.4 % (17.6-49.6) Monocytes (%) (Auto) 4.8 % (4.1-12.4) Eosinophils (%) (Auto) 1.5 % (0.4-6.7) Basophils (%) (Auto) 1.0 % (0.3-1.4) Nucleated RBC Relative Count (auto) 0.0 /100WBC Neutrophils # (Auto) 6.4 K/uL (2.0-7.4) Lymphocytes # (Auto) 2.4 K/uL (1.3-3.6) Monocytes # (Auto) 0.5 K/uL (0.3-1.0) Eosinophils # (Auto) 0.1 K/uL (0.0-0.5) Basophils # (Auto) 0.1 K/uL (0.0-0.1) Nucleated RBC Absolute Count (auto) 0.00 K/uL Sodium Level 140 mmol/L (137-145) Potassium Level 3.8 mmol/L (3.5-5.0) Chloride Level 106 mmol/L (98-107) Carbon Dioxide Level 21 mmol/L (22-31) Blood Urea Nitrogen 18 mg/dl (7-18) Creatinine 0.60 mg/dl (0.52-1.04) Glomerular Filtration Rate Calc > 60.0 Random Glucose 193 mg/dl (75-110) Calcium Level 9.3 mg/dl (8.4-10.2) Total Bilirubin 0.2 mg/dl (0.2-1.3) Aspartate Amino Transf (AST/SGOT) 115 U/L (0-35) Alanine Aminotransferase (ALT/SGPT) 158 U/L (0-56) Alkaline Phosphatase 128 U/L (0-126) B-Type Natriuretic Peptide 5 pg/ml (0-100) Total Protein 8.3 g/dl (6.3-8.2) Albumin 4.1 g/dl (3.5-5.0) Chemistry Test 03/04/18 17:00 White Blood Count 9.5 k/uL (4.5-11.0) Red Blood Count 5.61 M/uL (4.17-5.56) Hemoglobin 16.0 g/dL (12.0-16.0) Hematocrit 46.9 % (34.0-47.0) Mean Corpuscular Volume 83.6 fL (80.0-96.0) Mean Corpuscular Hemoglobin 28.6 pg (26.0-33.0) Mean Corpuscular Hemoglobin Concent 34.2 g/dL (32.0-36.0) Red Cell Distribution Width 13.7 % (11.5-14.5) Platelet Count 271 K/uL (150-450) Mean Platelet Volume 8.4 fL (7.2-11.1) Neutrophils (%) (Auto) 67.3 % (39.4-72.5) Lymphocytes (%) (Auto) 25.4 % (17.6-49.6) Monocytes (%) (Auto) 4.8 % (4.1-12.4) Eosinophils (%) (Auto) 1.5 % (0.4-6.7) Basophils (%) (Auto) 1.0 % (0.3-1.4) Nucleated RBC Relative Count (auto) 0.0 /100WBC Neutrophils # (Auto) 6.4 K/uL (2.0-7.4) Lymphocytes # (Auto) 2.4 K/uL (1.3-3.6) Monocytes # (Auto) 0.5 K/uL (0.3-1.0) Eosinophils # (Auto) 0.1 K/uL (0.0-0.5) Basophils # (Auto) 0.1 K/uL (0.0-0.1) Nucleated RBC Absolute Count (auto) 0.00 K/uL Glomerular Filtration Rate Calc > 60.0 Calcium Level 9.3 mg/dl (8.4-10.2) Total Bilirubin 0.2 mg/dl (0.2-1.3) Aspartate Amino Transf (AST/SGOT) 115 U/L (0-35) Alanine Aminotransferase (ALT/SGPT) 158 U/L (0-56) Alkaline Phosphatase 128 U/L (0-126) B-Type Natriuretic Peptide 5 pg/ml (0-100) Total Protein 8.3 g/dl (6.3-8.2) Albumin 4.1 g/dl (3.5-5.0) EKG/Imaging Imaging 2 VIEWS CHEST INDICATION: Respiratory distress. History smoking. COMPARISON: 07/19/2015. FINDINGS: Cardiomediastinal silhouette and pulmonary vessels within normal limits. There is no focal infiltrate or lobar consolidation. There is no pneumothorax or pleural effusion. No nodule. Upper abdomen is unremarkable. No acute bony abnormality. IMPRESSION: 1. No acute cardiopulmonary process. Report Dictated By: Eddie Garcia at 03/04/2018 6:10 PM Report E-Signed By: Eddie Garcia at 03/04/2018 6:11 PM ED Course/Re-evaluation ED Course Patient is admitted and examined, history of physical were obtained. Difficult diagnoses were considered. On examination lungs are diminished in the bases, heart is regular. A CBC, CMP, EKG, urinalysis, chest x-ray were done. Chest x- ray showed no acute cardiopulmonary processes, EKG showed a sinus tachycardia, CBC, CMP were unremarkable. I discussed findings with patient. I would that she does not have pneumonia but has bronchitis. We will go ahead and treat her with azithromycin. I discussed using a steroid for that to help with inflammation, patient states she is allergic to steroids. We will go ahead and treat her with azithromycin as well as a inhaler. We will also give her some hydrocodone with Tylenol to help with pain as well as help suppress the cough. Patient verbalized understanding and agreement with plan. Decision to Disposition Date: Mar 04, 2018 Decision to Disposition Time: 18:32 Depart Departure Latest Vital Signs Vital Signs Date Time Temp Pulse Resp B/P (MAP) Pulse Ox O2 Delivery O2 Flow Rate FiO2 03/04/18 18:35 101 8 95 03/04/18 18:30 140/81 (100) 03/04/18 16:19 98.2 Room Air Impression: Primary Impression: Bronchitis Condition: Improved Disposition: HOME OR SELF-CARE Referrals: DAVE APODACA MD (PCP) New Scripts Albuterol Sulfate (VENTOLIN HFA) 18 Gm Inh 2 PUFF INH Q4-6H PRN for SHORTNESS OF BREATH, #1 INH Prov: CLAUDIA DECKER 03/04/18 Hydrocodone Bit/Acetaminophen (HYDROCODON-ACETAMINOPHEN 5-325) 1 Each Tablet 1 EACH PO Q4-6H PRN for PAIN, #10 TAB Prov: CLAUDIA DECKER 03/04/18 Azithromycin 250 Mg Tab (AZITHROMYCIN 250 MG TAB) 250 Mg Tablet 1 TAB PO QDAY, #6 TAB Take 2 tabs today and then 1 tab a day until gone. Prov: CLAUDIA DECKER 03/04/18 Patient Instructions: Acute Bronchitis (ED) Additional Instructions: Increase fluid intake. Get plenty of rest. Follow up with your primary care provider in the next week. Return to the ER if condition worsens. Take the medication as prescribed. CLAUDIA DECKER Mar 04, 2018 16:25
[2018-03-04] MEDS ORDERED: NS(*) 0.9% 1000 ML BAG 1,000 ML IV ONE (16:26)
[2018-03-04] MEDS ORDERED: ALBUTEROL/IPRATROPIUM 3 ML NEB NEB ONE ×2 (16:30→16:55)
[2018-03-04] MEDS ORDERED: ONDANSETRON 4 MG/2 ML VIAL ONE (17:06)
[2018-03-04] MEDS ORDERED: ONDANSETRON 4 MG/2 ML VIAL IVP ONE (17:10)
[2018-03-04 17:23] LABS: PLATELET COUNT, AUTOMATED 271 K/uL (150-450)
--- NOTE | 2018-03-04 18:15 | RADIOLOGY IMAGING REPORT ---
[place] [facility] [place]IENT NAME: Jomar Morrell : 1980 MR: [id number] V: [id number] EXAM DATE: ORDERING PHYSICIAN: CLAUDIA DECKER TECHNOLOGIST: [place] [facility] [place] Mor[place] : 1980 Visit/Account:[id number] Date of Sevice: 03/04/2018 2 VIEWS CHEST INDICATION: Respiratory distress. History smoking. COMPARISON: 07/19/2015. FINDINGS: Cardiomediastinal silhouette and pulmonary vessels within normal limits. There is no focal infiltrate or lobar consolidation. There is no pneumothorax or pleural effusion. No nodule. Upper abdomen is unremarkable. No acute bony abnormality. IMPRESSION: 1. No acute cardiopulmonary process. Report Dictated By: Eddie Garcia at 03/04/2018 6:10 PM Report E-Signed By: Eddie Garcia at 03/04/2018 6:11 PM WSN:[id number]
--- NOTE | 2018-03-04 18:25 | EKG ---
FACILITY: [facility] - [place] PATIENT NAME: NAVARRO ALANIZ : [id number] MR: [id number] V: [id number] EXAM DATE: ORDERING PHYSICIAN: CLAUDIA DECKER TECHNOLOGIST: WALTER Test Reason : VOMITTING Blood Pressure : / mmHG Vent. Rate : 105 BPM Atrial Rate : 105 BPM P-R Int : 142 ms QRS Dur : 082 ms QT Int : 336 ms P-R-T Axes : 023 050 019 degrees QTc Int : 444 ms Sinus tachycardia Possible Left atrial enlargement Nonspecific ST findings Borderline ECG Confirmed by PABLO CARDONA ([id number] on 03/05/2018 3:40:30 AM Referred By: CRISTAL Confirmed By:PABLO CARDONA
[2018-03-04 18:30] VITALS: BP 140/81
[2018-03-04] MEDS ORDERED: APAP/HYDROCODONE 325/5 TAB PO ONE (18:30)
[2018-03-04] MEDS ORDERED: HYDR-385 PO (18:31)
[2018-03-04] MEDS ORDERED: AZIT-18 PO (18:31)
[2018-03-04] MEDS ORDERED: ALB18R INH (18:32)
== END 2018-03-04 19:00 | disposition home or self-care (01) ==
LOC: ER 16:18
DX: J40 Bronchitis, not specified as acute or chronic (principal); R00.0 Tachycardia, unspecified; F17.210 Nicotine dependence, cigarettes, uncomplicated
CPT/HCPCS: 71046; 83880; 85025; 94640; 96361; 96374; 99284; J2405; J7030; J7620; 82040; 82247; 82310; 82374; 82435; 82565; 82947; 84075; 84132; 84155; 84295; 84450; 84460; 84520

== ENCOUNTER → 2018-04-05 | Outpatient (CLI) | payer MEDICAID ==
[~2018-04-05] MED LIST changes: +ALB18R INH; +AZIT-18 PO; +EMPA10TA PO; +FLAS1EAC ASDIRECTED; +FLAS1KIT SUBQ; +FLU60VIA41 IM; -HYDR-4305 PO; -HYDR-4309 PO; +HYDR-627 PO; +HYDR-653 PO; +INSU100I8 SUBQ; +LOSA50TA74 PO; +PNEI IM
== END ==
LOC: LAB 08:49
PROVIDERS: ATTEND Emergency Medicine
DX: E11.9 Type 2 diabetes mellitus without complications (principal); E66.9 Obesity, unspecified
CPT/HCPCS: 36415; 82465; 83036; 83718; 84443; 84478

== ENCOUNTER 2018-04-08 10:04 | Emergency (ER) | payer MEDICAID ==
[2018-04-08] MEDS ORDERED: GLIM4TAB50 PO (10:18)
[2018-04-08] MEDS ORDERED: SULF-198 PO (10:41)
--- NOTE | 2018-04-08 10:42 | ER Report ---
History and Physical Time Seen By MD: 10:42 Hx. of Stated Complaint: abscess on RL ABDOMEN, RED AND RAISED WITH BLOODY DRAINAGE SEV WEEKS HPI/ROS CHIEF COMPLAINT: Abscess HISTORY OF PRESENT ILLNESS: Patient is a 38-year-old female known history of diabetes morbid obesity comes emergency Department complaining of an abscess on her right side of her abdomen near her pannus patient had multiple abscesses in the past and she is reporting that she has had MRSA in the past as well a patient's visits tender she's had this about 3 weeks so primary care within [facility] to them at this time. The emergency room for definitive therapy. Patient denies any fever chills or sweats nausea vomiting diarrhea or additional complaints noted abscesses localized without any sign of extension REVIEW OF SYSTEMS: Respiratory: No cough, no dyspnea. Cardiovascular: No chest pain, no palpitations. Gastrointestinal: No vomiting, no abdominal pain. Musculoskeletal: No back pain. Remainder of the 14 system rev: Yes Allergies: Coded Allergies: codeine (Verified Allergy, Severe, FACE SWELLS, HYPERVENTILATE, DIFFICULTY BREATHING, 03/04/18) prednisone (Verified Allergy, Severe, LOSES SIGHT, 03/04/18) aspirin (Verified Allergy, Mild, 03/04/18) difficulty breathing Home Meds Active Scripts Losartan Potassium (LOSARTAN POTASSIUM) 50 Mg Tablet, 50 MG PO QDAY, #15 TAB Prov:DAVE APODACA MD 04/05/18 Flash Glucose Sensor (Freestyle Miguelito Sensor) 1 Each Kit, EA SUBQ DIRECTED, #3 11 Refills Prov:DAVE APODACA MD 04/05/18 Flash Glucose Scanning Burt (Freestyle Miguelito Burt) 1 Each Each, MISC ASDIRECTED 3-4XD, #1 Prov:DAVE APODACA MD 04/05/18 Insulin Degludec (Tresiba Flextouch U-100) 100 Unit/Ml (3 Ml) Insuln.pen, 50 UNITS SUBQ DAILY, #1 BOX 11 Refills Prov:DAVE APODACA MD 04/05/18 Albuterol Sulfate (VENTOLIN HFA) 18 Gm Inh, 2 PUFF INH Q4-6H PRN for SHORTNESS OF BREATH, #1 INH Prov:CLAUDIA DECKER 03/04/18 Insulin Glargine 100 Un/Ml Pen (LANTUS SOLOSTAR PEN) 100 Unit/1 Ml Insuln.pen, 44 UNIT SQ QHS, #1 BOX 3 Refills Increase by 2 units every 2 days until fasting glucose is 130 or less. Maximum is 100 units. Prov:DAVE APODACA MD 09/27/17 Blood Sugar Diagnostic (BLOOD GLUCOSE TEST STRIP) 1 Each Strip, 1 EACH MC QID, #1 BOTTLE 11 Refills Prov:DAVE APODACA MD 08/26/17 Lancets (FREESTYLE LANCETS) 1 Each Each, EACH MC QID, #1 11 Refills Prov:DAVE APODACA MD 08/26/17 Fluticasone Prop 50 Mcg Ns (FLONASE 50 MCG NS) 16 Gm [place].susp, 1 SPRAY NS BID, #1 BOT 11 Refills Prov:DAVE APODACA MD 06/17/17 Pen Needle, Diabetic, Safety (PEN NEEDLE) 1 Each Dis.needle, EACH MC, #90 3 Refills Prov:DAVE APODACA MD 06/17/17 Reported Medications Glimepiride (GLIMEPIRIDE) 4 Mg Tablet, 4 MG PO QDAY 04/08/18 Discontinued Scripts Empagliflozin (Jardiance) 10 Mg Tablet, 1 TAB PO DAILY, #30 TAB Prov:DAVE APODACA MD 04/05/18 Diclofenac Sodium (DICLOFENAC SODIUM) 75 Mg Tablet.dr, 75 MG PO BID, #60 TAB Prov:DAVE APODACA MD 08/02/17 Hydrocodone Bit/Acetaminophen (HYDROCODON-ACETAMINOPHEN 5-325) 1 Each Tablet, 1 EACH PO Q4-6H PRN for PAIN, #10 TAB Prov:CLAUDIA DECKER 03/04/18 Azithromycin 250 Mg Tab (AZITHROMYCIN 250 MG TAB) 250 Mg Tablet, 1 TAB PO QDAY, #6 TAB Take 2 tabs today and then 1 tab a day until gone. Prov:CLAUDIA DECKER 03/04/18 Amoxicillin/Pot Clav 875-125 Mg Tab (AUGMENTIN 875-125 TABLET) 1 Each Tablet, 1 TAB PO Q12H, #20 TAB 0 Refills Prov:KARLA HARRELL MD 09/13/17 Docusate Sodium (COLACE) 100 Mg Capsule, 1 CAP PO BID, #30 CAPSULE 0 Refills Prov:KARLA HARRELL MD 08/19/17 Insulin Lispro 100 Un/Ml Pen (HUMALOG 3 ML PEN) 100 Unit/1 Ml Insuln.pen, 100 UNIT SQ DIRECTED, #1 DIS.SYR 0 Refills Prov:UMAIR MELGAR MD 08/14/17 Lisinopril (LISINOPRIL) 10 Mg Tablet, 10 MG PO QDAY, #90 TAB 3 Refills Prov:DAVE APODACA MD 07/02/17 Glimepiride (GLIMEPIRIDE) 4 Mg Tablet, 4 MG PO QDAY, #90 TAB 3 Refills Prov:DAVE APODACA MD 07/02/17 Reviewed Nurses Notes: Yes Old Medical Records Reviewed: Yes Hx Smoking: Yes (0.5 ppd, 20 years (used to be 1.5 ppd)) Smoking Status: Current: Every Day Smoker Exposure to Second Hand Smoke?: Yes Hx Substance Use Disorder: No Hx Alcohol Use: No Constitutional Vital Sign - Last 24 Hours 04/08/18 10:11 Temp 98.3 Pulse 86 Resp 16 B/P (MAP) 146/89 Pulse Ox 95 O2 Delivery Room Air Physical Exam General appearance: Alert no distress. Respiratory: Chest is non tender, lungs are clear to auscultation. Cardiac: Regular rate and rhythm [ ] In examination of the abdomen demonstrates a 1.2 x 1.4 cm diameter shallow abscess with minimal fluctuation no induration noted area is mildly tender to palpation otherwise unremarkable exam DIFFERENTIAL DIAGNOSIS: After history and physical exam differential diagnosis was considered for abscess Medical Decision Making ED Course/Re-evaluation ED Course ED clinical course medical decision making 30-year-old female with an obvious small abscess to her abdomen this is very small very minimal fluctuation and induration on likely this time to produce much if her incision and drainage was performed I believe should benefit from by mouth antibiotics for the next 7 days we'll initiate that today with the understanding if the abscess is not significantly improved follow up with primary care or return to ED for definitive procedural therapy Decision to Disposition Date: Apr 08, 2018 Decision to Disposition Time: 10:40 Depart Departure Latest Vital Signs Vital Signs Date Time Temp Pulse Resp B/P (MAP) Pulse Ox O2 Delivery O2 Flow Rate FiO2 04/08/18 10:11 98.3 86 16 146/89 95 Room Air Impression: Primary Impression: Abscess Condition: Condition Unchanged Disposition: HOME OR SELF-CARE Referrals: DAVE APODACA MD (PCP) 5 Days New Scripts Sulfamethoxazole/Trimet 800-160 Mg Tab (BACTRIM DS TABLET) 1 Each Tablet 1 TAB PO Q12H, #14 MG 0 Refills TAKE ONE TABLET BY MOUTH EVERY TWELVE HOURS Prov: HEAVENLY LUCAS MD 04/08/18 Patient Instructions: Abscess (ED) HEAVENLY LUCAS MD Apr 08, 2018 10:42
[2018-04-08 10:49] VITALS: BP 142/93
== END 2018-04-08 10:51 | disposition home or self-care (01) ==
LOC: ER 10:39
DX: L02.211 Cutaneous abscess of abdominal wall (principal)
CPT/HCPCS: 99281

== ENCOUNTER → 2018-05-11 | Outpatient (CLI) | payer MEDICAID ==
[~2018-05-11] MED LIST changes: +DICL100G39 TOP; +MELO-205 PO
== END ==
LOC: LAB 10:05
PROVIDERS: ATTEND Emergency Medicine
DX: I10 Essential (primary) hypertension (principal)
CPT/HCPCS: 36415; 82310; 82374; 82435; 82565; 82947; 84132; 84295; 84520

== ENCOUNTER → 2018-08-11 | Outpatient (CLI) | payer MEDICAID ==
[~2018-08-11] MED LIST changes: +DICL100G39 TP; -LOSA50TA74 PO; +LOSA50TA80 PO; +NITR0.4T3 SL
--- NOTE | 2018-08-11 09:09 | EKG ---
FACILITY: [facility] PATIENT NAME: NAVARRO ALANIZ : [id number] MR: [id number] V: [id number] EXAM DATE: ORDERING PHYSICIAN: SHABBIR ALARCON TECHNOLOGIST: MARCIO Test Reason : Blood Pressure : / mmHG Vent. Rate : 067 BPM Atrial Rate : 067 BPM P-R Int : 180 ms QRS Dur : 094 ms QT Int : 414 ms P-R-T Axes : 035 060 055 degrees QTc Int : 437 ms Normal sinus rhythm with sinus arrhythmia Normal ECG When compared with ECG of 04-MAR-2018 16:38, Vent. rate has decreased BY 38 BPM Confirmed by SHABBIR ALARCON ([id number]) on 08/12/2018 8:15:02 AM Referred By: PAULIE Confirmed By:SHABBIR ALARCON
[2018-08-11 09:20] LABS: PLATELET COUNT, AUTOMATED 234 K/uL (150-450)
--- NOTE | 2018-08-11 12:33 | RADIOLOGY IMAGING REPORT ---
FACILITY: [facility] [place] PATIENT NAME: Jomar Morrell : 1980 MR: [id number] V: [id number] EXAM DATE: ORDERING PHYSICIAN: DAVE APODACA TECHNOLOGIST: Location: [facility] Patient: Jomar Morrell : 1980 Visit/Account:[id number] Date of Sevice: 08/11/2018 Exam type: CHEST PA LAT History: Chest pain Comparison: March 04, 2018. Findings: There is a small amount of linear stranding in the left lung base. There is no evidence of acute brady earing infiltrates, pleural effusions or pulmonary edema. Cardiac silhouette is normal in size. IMPRESSION: 1. Small amount of linear stranding left lung base may represent atelectasis Report Dictated By: Zoë Solitario MD at 08/11/2018 12:26 PM Report E-Signed By: Zoë Solitario MD at 08/11/2018 12:28 PM WSN:[id number]
== END ==
LOC: RESP 08:58
PROVIDERS: ATTEND Emergency Medicine
DX: R91.8 Other nonspecific abnormal finding of lung field (principal); E11.9 Type 2 diabetes mellitus without complications; R07.9 Chest pain, unspecified
CPT/HCPCS: 71046; 82310; 82374; 82435; 82565; 82947; 83036; 84132; 84295; 84484; 84520; 85025; 85379; 86140

== ENCOUNTER 2018-11-19 22:03 | Emergency (ER) | payer MEDICAID ==
[2018-11-19] MEDS ORDERED: ONDANSETRON 4 MG/2 ML VIAL IVP ONE (22:10)
[2018-11-19] MEDS ORDERED: HYDROMORPHONE HCL 1 MG/ML SYRINGE IVP ONE (22:10)
[2018-11-19] MEDS ORDERED: NITROGLYCERIN OINT 1 GM PKT TP ONE (22:10)
[2018-11-19 22:24] LABS: PLATELET COUNT, AUTOMATED 312 K/uL (150-450)
[2018-11-19] MEDS ORDERED: CYCL10TA29 PO (23:09)
[2018-11-19] MEDS ORDERED: OXYC-865 PO (23:09)
--- NOTE | 2018-11-19 23:09 | RADIOLOGY IMAGING REPORT ---
FACILITY: [facility] [place] PATIENT NAME: Jomar Morrell : 1980 MR: [id number] V: [id number] EXAM DATE: ORDERING PHYSICIAN: SOLOMON TELLEZ TECHNOLOGIST: Location: [facility] Patient: Jomar Morrell : 1980 Visit/Account:[id number] Date of Sevice: 11/19/2018 PORTABLE CHEST: Indication: Chest pain and arm pain. Technique: A single frontal film was obtained. Comparison: 08/11/2018 Skeletal and soft tissue structures: Intact and unremarkable. Heart and mediastinum: Within normal limits. Lung brooks: Well-expanded. There is chronic linear scarring at the left base. No acute parenchymal p rocess is identified. Pleural spaces: Unremarkable. Impression: No acute process or significant change. Report Dictated By: Willi Spears MD at 11/19/2018 11:03 PM Report E-Signed By: Willi Spears MD at 11/19/2018 11:05 PM WSN:[id number]
[2018-11-19] MEDS ORDERED: CYCLOBENZAPRINE HCL 10 MG TH PO ONE (23:10)
[2018-11-19] MEDS ORDERED: oxyCODONE/ACETAMIN 5/325MG TH 2 TAB/BOTTLE PO ONE (23:10)
--- NOTE | 2018-11-19 23:10 | ER Report ---
History and Physical Time Seen By MD: 22:01 Hx. of Stated Complaint: PT REPORTS SEVERE LEFT SIDED ARM AND CHEST PAIN. STATES 3 WEEKS AGO SHE HAD A SIMILAR EPISODE. WAS SEEN BY HER PCP WHO GAVE HER NITRO. PT TOOK A DOSE OF NITRO PRIOR TO COMING IN HPI/ROS CHIEF COMPLAINT: Left arm pain,? Cardiac history HISTORY OF PRESENT ILLNESS: 38-year-old female, type II diabetic, followed by Dr. Apodaca who presents with chest pain. She was referred back in July of this year for months ago for a treadmill for evaluation of her chest pain. She has failed to follow-up. There has been a certified letter sent to her by her primary care doctor to follow-up. Patient notes 3 days of left arm pain. She does have a history of degenerative disc disease in her neck. She notes no diaphoresis, notes some shortness of breath, some nausea. She has been prescribed nitroglycerin. She had an episode 3 weeks ago where she took neck glycerin her symptoms resolved. She was not seen in the ER or by primary care at that time. Patient notes no leg swelling or calf pain. REVIEW OF SYSTEMS: Respiratory: No cough, no dyspnea. Cardiovascular: No chest pain, no palpitations. Gastrointestinal: No vomiting, no abdominal pain. Musculoskeletal: No back pain. Allergies: Coded Allergies: codeine (Verified Allergy, Severe, FACE SWELLS, HYPERVENTILATE, DIFFICULTY BREATHING, 03/04/18) prednisone (Verified Allergy, Severe, LOSES SIGHT, 03/04/18) aspirin (Verified Allergy, Mild, 03/04/18) difficulty breathing meloxicam (Unverified Adverse Reaction, Unknown, 05/24/18) racing heart Home Meds Active Scripts Oxycodone Hcl/Acetaminophen (PERCOCET 5-325 MG TABLET) 1 Each Tablet, 1 EACH PO Q4-6H PRN for PAIN, #8 Prov:SOLOMON TELLEZ DO 11/19/18 Cyclobenzaprine Hcl (CYCLOBENZAPRINE HCL) 10 Mg Tablet, 10 MG PO TID PRN for muscle spasm relief, #9 TAB Prov:SOLOMON TELLEZ DO 11/19/18 Glimepiride (GLIMEPIRIDE) 4 Mg Tablet, 4 MG PO QDAY, #90 TAB 3 Refills Prov:DAVE APODACA MD 09/15/18 Nitroglycerin (NITROGLYCERIN) 0.4 Mg Tab.subl, 0.4 MG SL Q5MIN, #20 TAB 0 Refills Take one tab every 5 minutes for chest pain, up to 3 doses. If chest pain continues after 3 doses, go to ER. Prov:DAVE APODACA MD 08/12/18 Diclofenac Sodium 1% Gel (VOLTAREN 1% GEL) 100 Gm Gel..gram., 2 GM TP QID PRN for PAIN for 30 Days, #60 GM 4 Refills Prov:DAVE APODACA MD 05/24/18 Losartan Potassium (LOSARTAN POTASSIUM) 50 Mg Tablet, 50 MG PO QDAY, #90 TAB 3 Refills Prov:DAVE APODACA MD 05/11/18 Insulin Glargine 100 Un/Ml Pen (LANTUS SOLOSTAR PEN) 100 Unit/1 Ml Insuln.pen, 52 UNIT SQ QHS, #1 BOX 3 Refills Increase by 2 units every 2 days until fasting glucose is 130 or less. Maximum is 100 units. Prov:DAVE APODACA MD 05/11/18 Albuterol Sulfate (VENTOLIN HFA) 18 Gm Inh, 2 PUFF INH Q4-6H PRN for SHORTNESS OF BREATH, #1 INH Prov:JERONIMOCLAUDIA [facility] 03/04/18 Blood Sugar Diagnostic (BLOOD GLUCOSE TEST STRIP) 1 Each Strip, 1 EACH MC QID, #1 BOTTLE 11 Refills Prov:DAVE APODACA MD 08/26/17 Lancets (FREESTYLE LANCETS) 1 Each Each, EACH MC QID, #1 11 Refills Prov:DAVE APODACA MD 08/26/17 Fluticasone Prop 50 Mcg Ns (FLONASE 50 MCG NS) 16 Gm [place].susp, 1 SPRAY NS BID, #1 BOT 11 Refills Prov:DAVE APODACA MD 06/17/17 Pen Needle, Diabetic, Safety (PEN NEEDLE) 1 Each Dis.needle, EACH MC, #90 3 Refills Prov:DAVE APODACA MD 06/17/17 Past Medical/Surgical History Past medical history: Hypertension, peptic ulcer disease, type II diabetes, insulin required, since 2016. Degenerative disc disease cervical spine Past surgical history 2003 2005. Social history every day smoker one half pack per day, occasional alcohol use Reviewed Nurses Notes: Yes Old Medical Records Reviewed: Yes Hx Smoking: Yes (0.5 ppd, 20 years (used to be 1.5 ppd)) Smoking Status: Current: Every Day Smoker Exposure to Second Hand Smoke?: Yes Hx Substance Use Disorder: No Hx Alcohol Use: No Constitutional Vital Sign - Last 24 Hours 11/19/18 11/19/18 11/19/18 11/19/18 22:08 22:11 22:15 22:30 Pulse 125 Resp 18 B/P (MAP) 130/86 130/86 (101) 141/86 (104) 127/81 (96) Pulse Ox 90 O2 Delivery Room Air 11/19/18 11/19/18 11/19/18 11/19/18 22:33 22:45 23:00 23:00 Pulse 119 Resp 77 B/P (MAP) 136/82 (100) 132/85 (101) Pulse Ox 91 O2 Flow Rate 1.0 11/19/18 11/19/18 11/19/18 23:03 23:15 23:20 Pulse 120 114 Resp 20 10 B/P (MAP) 128/60 (82) Pulse Ox 92 92 Physical Exam Vital signs stable, afebrile, pulse ox normal, moderate distress General Appearance: The patient is alert, has no immediate need for airway protection and no current signs of toxicity. HEENT: Pupils equal and round no injection. TMs normal, oropharynx without redness or exudate Respiratory: Chest is non tender, lungs are clear to auscultation. No chest wall tenderness Cardiac: regular rate and rhythm, no murmur Gastrointestinal: Abdomen is soft and non tender, no masses, bowel sounds normal. Musculoskeletal: Neck: Neck is supple and non tender. Extremities have full range of motion and are non tender. Left upper extremity is neurovascularly intact Skin: No rashes or lesions. DIFFERENTIAL DIAGNOSIS: After history and physical exam differential diagnosis was considered for chest pain including but not limited to myocardial ischemia, pericarditis pulmonary embolus, chest wall pain, pleural inflammation and pulmonary infectious causes. Medical Decision Making Data Points Result Diagram: 11/19/18220911/19/182209 Laboratory Hematology Test 11/19/18 22:10 Red Blood Count 5.49 M/uL (4.17-5.56) Mean Corpuscular Volume 86.5 fL (80.0-96.0) Mean Corpuscular Hemoglobin 28.6 pg (26.0-33.0) Mean Corpuscular Hemoglobin Concent 33.0 g/dL (32.0-36.0) Red Cell Distribution Width 13.9 % (11.5-14.5) Mean Platelet Volume 8.1 fL (7.2-11.1) Neutrophils (%) (Auto) 46.7 % (39.4-72.5) Lymphocytes (%) (Auto) 46.8 % (17.6-49.6) Monocytes (%) (Auto) 4.1 % (4.1-12.4) Eosinophils (%) (Auto) 1.1 % (0.4-6.7) Basophils (%) (Auto) 1.3 % (0.3-1.4) Nucleated RBC Relative Count (auto) 0.0 /100WBC Neutrophils # (Auto) 5.2 K/uL (2.0-7.4) Lymphocytes # (Auto) 5.3 K/uL (1.3-3.6) Monocytes # (Auto) 0.5 K/uL (0.3-1.0) Eosinophils # (Auto) 0.1 K/uL (0.0-0.5) Basophils # (Auto) 0.1 K/uL (0.0-0.1) Nucleated RBC Absolute Count (auto) 0.00 K/uL Prothrombin Time 13.2 seconds (12.0-14.4) Prothromb Time International Ratio 1.00 Activated Partial Thromboplast Time 29 seconds (23-35) D-Dimer Quantitative (PE/DVT) 0.70 ug/ml (0-0.50) Sodium Level 141 mmol/L (137-145) Potassium Level 3.6 mmol/L (3.5-5.0) Chloride Level 105 mmol/L (98-107) Carbon Dioxide Level 18 mmol/L (22-31) Blood Urea Nitrogen 10 mg/dl (7-18) Creatinine 0.70 mg/dl (0.52-1.04) Glomerular Filtration Rate Calc > 60.0 Random Glucose 294 mg/dl (75-110) Calcium Level 8.8 mg/dl (8.4-10.2) Total Bilirubin < 0.1 mg/dl (0.2-1.3) Aspartate Amino Transf (AST/SGOT) 61 U/L (0-35) Alanine Aminotransferase (ALT/SGPT) 99 U/L (0-56) Alkaline Phosphatase 142 U/L (0-126) Troponin I < 0.012 ng/ml B-Type Natriuretic Peptide 7 pg/ml (0-100) Total Protein 8.3 g/dl (6.3-8.2) Albumin 4.2 g/dl (3.5-5.0) Chemistry Test 11/19/18 22:10 White Blood Count 11.2 k/uL (4.5-11.0) Red Blood Count 5.49 M/uL (4.17-5.56) Hemoglobin 15.7 g/dL (12.0-16.0) Hematocrit 47.5 % (34.0-47.0) Mean Corpuscular Volume 86.5 fL (80.0-96.0) Mean Corpuscular Hemoglobin 28.6 pg (26.0-33.0) Mean Corpuscular Hemoglobin Concent 33.0 g/dL (32.0-36.0) Red Cell Distribution Width 13.9 % (11.5-14.5) Platelet Count 312 K/uL (150-450) Mean Platelet Volume 8.1 fL (7.2-11.1) Neutrophils (%) (Auto) 46.7 % (39.4-72.5) Lymphocytes (%) (Auto) 46.8 % (17.6-49.6) Monocytes (%) (Auto) 4.1 % (4.1-12.4) Eosinophils (%) (Auto) 1.1 % (0.4-6.7) Basophils (%) (Auto) 1.3 % (0.3-1.4) Nucleated RBC Relative Count (auto) 0.0 /100WBC Neutrophils # (Auto) 5.2 K/uL (2.0-7.4) Lymphocytes # (Auto) 5.3 K/uL (1.3-3.6) Monocytes # (Auto) 0.5 K/uL (0.3-1.0) Eosinophils # (Auto) 0.1 K/uL (0.0-0.5) Basophils # (Auto) 0.1 K/uL (0.0-0.1) Nucleated RBC Absolute Count (auto) 0.00 K/uL Prothrombin Time 13.2 seconds (12.0-14.4) Prothromb Time International Ratio 1.00 Activated Partial Thromboplast Time 29 seconds (23-35) D-Dimer Quantitative (PE/DVT) 0.70 ug/ml (0-0.50) Glomerular Filtration Rate Calc > 60.0 Calcium Level 8.8 mg/dl (8.4-10.2) Total Bilirubin < 0.1 mg/dl (0.2-1.3) Aspartate Amino Transf (AST/SGOT) 61 U/L (0-35) Alanine Aminotransferase (ALT/SGPT) 99 U/L (0-56) Alkaline Phosphatase 142 U/L (0-126) Troponin I < 0.012 ng/ml B-Type Natriuretic Peptide 7 pg/ml (0-100) Total Protein 8.3 g/dl (6.3-8.2) Albumin 4.2 g/dl (3.5-5.0) Coagulation Test 11/19/18 22:10 Prothrombin Time 13.2 seconds Prothromb Time International Ratio 1.00 Activated Partial Thromboplast Time 29 seconds D-Dimer Quantitative (PE/DVT) 0.70 ug/ml EKG/Imaging EKG Interpretation 12 lead EKG: Rhythm: Sinus tachycardia [place]: normal QRS: normal ST segments: normal, on comparison to previous EKG, no significant change dated 08/11/18 and 03/04/18 Imaging X-ray: Single view portable chest x-ray was obtained. I viewed the images my self on the PACS system. My interpretation of the images is: No infiltrate, no effusion, normal mediastinum, there is some atelectasis in the left base, comparison to previous chest x-ray dated 08/11/18. The radiologist interpretation had no clinically significant variation from this interpretation. ED Course/Re-evaluation Clinical Indication for ER IV: IV Access ED Course Patient was admitted to an examination room. H&P was done. The differential diagnosis was considered. Patient's been referred for a treadmill but has failed to follow-up in 4 months. He is complaining of severe left arm pain. She does admit she has disc disease in her neck. Patient has some associated symptoms. She is a type II diabetic, insulin required. Her initial EKG shows no evidence of ischemic changes. Patient's treated IV Dilaudid and Nitropaste a s well as Zofran. She has an allergy to aspirin and NSAIDs. Her diagnostic studies returned unremarkable. Patient's advised to conservative treatment plan for likely radicular pain of her neck referred down her left arm. She's placed on Flexeril and Percocet. She is advised to follow-up with her primary care doctor's this next week and complete her treadmill as planned. Rule out cardiac disease. Patient's blood sugar returned at 294. Decision to Disposition Date: Nov 19, 2018 Decision to Disposition Time: 23:07 Depart Departure Latest Vital Signs Vital Signs Date Time Temp Pulse Resp B/P (MAP) Pulse Ox O2 Delivery O2 Flow Rate FiO2 11/19/18 23:20 114 10 92 11/19/18 23:15 128/60 (82) 11/19/18 23:00 1.0 11/19/18 22:08 Room Air Impression: Primary Impression: Left arm pain Additional Impressions: History of chest pain History of degenerative disc disease Condition: Improved Disposition: HOME OR SELF-CARE Referrals: DAVE APODACA MD (PCP) New Scripts Oxycodone Hcl/Acetaminophen (PERCOCET 5-325 MG TABLET) 1 Each Tablet 1 EACH PO Q4-6H PRN for PAIN, #8 Prov: SOLOMON TELLEZ DO 11/19/18 Cyclobenzaprine Hcl (CYCLOBENZAPRINE HCL) 10 Mg Tablet 10 MG PO TID PRN for muscle spasm relief, #9 TAB Prov: SOLOMON TELLEZ DO 11/19/18 Patient Instructions: Degenerative Disc Disease (ED) Additional Instructions: Follow-up with your primary care doctor early next week for further evaluation Problem Qualifiers SOLOMON TELLEZ DO Nov 19, 2018 23:10
--- NOTE | 2018-11-19 23:11 | EKG ---
[place] [facility] [place] NAVARRO ALANIZ : [id number] MR: [id number] V: [id number] EXAM DATE: ORDERING PHYSICIAN: SOLOMON TELLEZ TECHNOLOGIST: TRENT Test Reason : CHEST PAIN Blood Pressure : / mmHG Vent. Rate : 128 BPM Atrial Rate : 128 BPM P-R Int : 140 ms QRS Dur : 082 ms QT Int : 330 ms P-R-T Axes : 070 071 074 degrees QTc Int : 481 ms Sinus tachycardia Query left atrial enlargement. When compared with ECG of 11-AUG-2018 08:53, Vent. rate has increased BY 61 BPM Confirmed by NANCY PAT ([id number]) on 11/20/2018 3:48:51 AM Referred By: Confirmed By:NANCY PAT
[2018-11-19 23:15] VITALS: BP 128/60
== END 2018-11-19 23:35 | disposition home or self-care (01) ==
LOC: ER 22:41
DX: M79.602 Pain in left arm (principal); R07.9 Chest pain, unspecified; E11.9 Type 2 diabetes mellitus without complications; Z79.4 Long term (current) use of insulin
CPT/HCPCS: 71045; 83880; 84484; 85025; 85379; 85610; 85730; 93005; 96374; 96375; 99284; J1170; J2405; 82040; 82247; 82310; 82374; 82435; 82565; 82947; 84075; 84132; 84155; 84295; 84450; 84460; 84520

== ENCOUNTER 2019-01-15 23:11 | Emergency (ER) | payer MEDICAID ==
--- NOTE | 2019-01-15 23:14 | ER Report ---
History and Physical Time Seen By MD: 23:08 HPI/ROS CHIEF COMPLAINT: Chest pain HISTORY OF PRESENT ILLNESS: 38-year-old female, type II diabetic brought in by EMS from home complaining of chest pain onset 45 minutes prior to arrival. Patient relates that she's been having chest pain for 3 weeks. Patient received nitroglycerin, morphine 8 mg, Zofran 4 mg. Her EKG from the field is unremarkable. Patient was seen here in the emergency department on 11/19/18 with similar presentation and similar symptoms. Her diagnostic workup is unremarka ble. Patient's been sent a certified letter that she follow-up with her primary care doctor for a treadmill since July 2018. Patient has failed to follow- up. She was seen here 8 weeks ago with similar presentation and was advised to follow up urgently for an outpatient treadmill. At that time. Patient was treated with Flexeril and Percocet for neck spasm likely the etiology of her pain. Patient notes pinpoint left sternal pain that's deep and boring. She notes no associated symptoms tonight. She was having a beer tonight at the onset of pain. Patient and that she does have a history of GERD. REVIEW OF SYSTEMS: Respiratory: [No cough, no dyspnea.] Cardiovascular: [No chest pain, no palpitations.] Gastrointestinal: [No vomiting, no abdominal pain.] Musculoskeletal: [No back pain.] Allergies: Coded Allergies: codeine (Verified Allergy, Severe, FACE SWELLS, HYPERVENTILATE, DIFFICULTY BREATHING, 03/04/18) prednisone (Verified Allergy, Severe, LOSES SIGHT, 03/04/18) aspirin (Verified Allergy, Mild, 03/04/18) difficulty breathing meloxicam (Unverified Adverse Reaction, Unknown, 05/24/18) racing heart Home Meds Active Scripts Insulin Glargine 100 Un/Ml Pen (LANTUS SOLOSTAR PEN) 100 Unit/1 Ml Insuln.pen, 44 UNIT SQ QHS, #1 BOX 0 Refills Prov:DAVE APODACA MD 01/13/19 Oxycodone Hcl/Acetaminophen (PERCOCET 5-325 MG TABLET) 1 Each Tablet, 1 EACH PO Q4-6H PRN for PAIN, #8 Prov:SOLOMON TELLEZ DO 11/19/18 Cyclobenzaprine Hcl (CYCLOBENZAPRINE HCL) 10 Mg Tablet, 10 MG PO TID PRN for muscle spasm relief, #9 TAB Prov:SOLOMON TELLEZ DO 11/19/18 Glimepiride (GLIMEPIRIDE) 4 Mg Tablet, 4 MG PO QDAY, #90 TAB 3 Refills Prov:DAVE APODACA MD 09/15/18 Nitroglycerin (NITROGLYCERIN) 0.4 Mg Tab.subl, 0.4 MG SL Q5MIN, #20 TAB 0 Refills Take one tab every 5 minutes for chest pain, up to 3 doses. If chest pain continues after 3 doses, go to ER. Prov:DAVE APODACA MD 08/12/18 Diclofenac Sodium 1% Gel (VOLTAREN 1% GEL) 100 Gm Gel..gram., 2 GM TP QID PRN for PAIN for 30 Days, #60 GM 4 Refills Prov:DAVE APODACA MD 05/24/18 Losartan Potassium (LOSARTAN POTASSIUM) 50 Mg Tablet, 50 MG PO QDAY, #90 TAB 3 Refills Prov:DAVE APODACA MD 05/11/18 Albuterol Sulfate (VENTOLIN HFA) 18 Gm Inh, 2 PUFF INH Q4-6H PRN for SHORTNESS OF BREATH, #1 INH Prov:CLAUDIA DECKER FURNACE CHECKER 03/04/18 Blood Sugar Diagnostic (BLOOD GLUCOSE TEST STRIP) 1 Each Strip, 1 EACH QID, #1 BOTTLE 11 Refills Prov:DAVE APODACA MD 08/26/17 Lancets (FREESTYLE LANCETS) 1 Each Each, EACH QID, #1 11 Refills Prov:DAVE APODACA MD 08/26/17 Fluticasone Prop 50 Mcg Ns (FLONASE 50 MCG NS) 16 Gm [place].susp, 1 SPRAY NS BID, #1 BOT 11 Refills Prov:DAVE APODACA MD 06/17/17 Pen Needle, Diabetic, Safety (PEN NEEDLE) 1 Each Dis.needle, EACH , #90 3 Refills Prov:DAVE APODACA MD 06/17/17 Past Medical/Surgical History Past medical history: Hypertension, peptic ulcer disease, type II diabetes, insulin required, since 2016. Degenerative disc disease cervical spine Past surgical history 2003 2005. Social history every day smoker one half pack per day, occasional alcohol use Reviewed Nurses Notes: Yes Old Medical Records Reviewed: Yes Hx Smoking: Yes (0.5 ppd, 20 years (used to be 1.5 ppd)) Smoking Status: Current: Every Day Smoker Exposure to Second Hand Smoke?: Yes Hx Substance Use Disorder: No Hx Alcohol Use: No Constitutional Vital Sign - Last 24 Hours 01/15/19 01/15/19 01/16/19 01/16/19 23:16 23:45 00:00 00:30 Temp 98.2 Pulse 110 95 92 88 Resp 20 B/P (MAP) 141/97 136/88 (104) 143/68 (93) Pulse Ox 94 O2 Delivery Room Air Physical Exam General Appearance: The patient is alert, has no immediate need for airway protection and no current signs of toxicity. Moderate distress, patient received nitroglycerin and morphine 8 mg prior to arrival. Her vital signs are stable. Her saturation is normal. HEENT: Pupils equal and round no injection. Oropharynx without redness or exudate Respiratory: Chest is non tender, lungs are clear to auscultation. There is left chest wall tenderness, patient notes pain with deep inspiration. Auscultation Cardiac: regular rate and rhythm Gastrointestinal: Abdomen is soft and non tender, no masses, bowel sounds normal. Musculoskeletal: Neck: Neck is supple and non tender. Extremities have full range of motion and are non tender. No edema Skin: No rashes or lesions. DIFFERENTIAL DIAGNOSIS: After history and physical exam differential diagnosis was considered for chest pain including but not limited to myocardial ischemia, pericarditis pulmonary embolus, chest wall pain, pleural inflammation and pulmonary infectious causes. Medical Decision Making Data Points Result Diagram: 01/15/19 2300 01/15/19 2300 Laboratory Hematology Test 01/15/19 23:00 White Blood Count 9.7 k/uL (4.5-11.0) Red Blood Count 5.36 M/uL (4.17-5.56) Hemoglobin 15.9 g/dL (12.0-16.0) Hematocrit 46.7 % (34.0-47.0) Mean Corpuscular Volume 87.3 fL (80.0-96.0) Mean Corpuscular Hemoglobin 29.7 pg (26.0-33.0) Mean Corpuscular Hemoglobin Concent 34.0 g/dL (32.0-36.0) Red Cell Distribution Width 12.9 % (11.5-14.5) Platelet Count 253 K/uL (150-450) Mean Platelet Volume 8.1 fL (7.2-11.1) Neutrophils (%) (Auto) 51.3 % (39.4-72.5) Lymphocytes (%) (Auto) 41.3 % (17.6-49.6) Monocytes (%) (Auto) 5.1 % (4.1-12.4) Eosinophils (%) (Auto) 1.7 % (0.4-6.7) Basophils (%) (Auto) 0.6 % (0.3-1.4) Nucleated RBC Relative Count (auto) 0.0 /100WBC Neutrophils # (Auto) 5.0 K/uL (2.0-7.4) Lymphocytes # (Auto) 4.0 K/uL (1.3-3.6) H Monocytes # (Auto) 0.5 K/uL (0.3-1.0) Eosinophils # (Auto) 0.2 K/uL (0.0-0.5) Basophils # (Auto) 0.1 K/uL (0.0-0.1) Nucleated RBC Absolute Count (auto) 0.00 K/uL Chemistry Test 01/15/19 23:00 Sodium Level 140 mmol/L (137-145) Potassium Level 3.6 mmol/L (3.5-5.0) Chloride Level 106 mmol/L (98-107) Carbon Dioxide Level 21 mmol/L (22-31) Blood Urea Nitrogen 15 mg/dl (7-18) Creatinine 0.60 mg/dl (0.52-1.04) Glomerular Filtration Rate Calc > 60.0 Random Glucose 247 mg/dl (75-110) Calcium Level 8.8 mg/dl (8.4-10.2) Total Bilirubin 0.3 mg/dl (0.2-1.3) Aspartate Amino Transf (AST/SGOT) 193 U/L (0-35) Alanine Aminotransferase (ALT/SGPT) 163 U/L (0-56) Alkaline Phosphatase 140 U/L (0-126) Troponin I < 0.012 ng/ml B-Type Natriuretic Peptide < 5 pg/ml (0-100) Total Protein 8.2 g/dl (6.3-8.2) Albumin 4.1 g/dl (3.5-5.0) Toxicology Test 01/15/19 23:00 Serum Alcohol 212 mg/dl EKG/Imaging EKG Interpretation 12 lead EK Rhythm: Sinus tachycardia, rate 110 bpm G[place]y: normal QRS: normal ST segments: normal, comparison to previous EKG dated 11/19/18, no significant change Imaging X-ray: Single view portable chest x-ray was obtained. I viewed the images myself on the PACS system. My interpretation of the images is: No infiltrate, no effusion, normal mediastinum. The radiologist interpretation had no clinically significant variation from this interpretation. ED Course/Re-evaluation Clinical Indication for ER IV: Hydration, IV Access ED Course Patient was admitted to an examination room. H&P was done. The differential diagnoses was considered. Patient with chest pain, diabetic type II on insulin. Patient was referred for outpatient treadmill back in July by her primary care doctor. She's been ailing follow-up. She was seen here in the ER on November 19 with the chest pain presentation. Her diagnostic studies were unremarkable. She was again encouraged to follow-up with primary care for outpatient treadmill. Patient has failed to follow up. She claims that this next week. She is supposed to receive a call from Dr. Nation for an outpatient treadmill to be performed. [place]. Patient was consuming alcohol and developed more intense chest pain that her usual chest pain presents to the ER after being evaluated by EMS. She took several nitroglycerin without improvement of her pain. On arrival. Her EKG shows no evidence of ischemic changes. Diagnostic studies were again sent off. Her troponin returned unremarkable. Her blood al cohol returned at 212. Patient was medicated with Phenergan 25 mg for nausea and a GI cocktail. On reevaluation she is resting quietly. Chest x-ray shows scarring in the left base consistent with her previous chest x-ray. Patient was again encouraged to follow-up with primary care for further evaluation. She has abnormal LFTs. They or twice what they were on her last visit. I reviewed her records. She has several gallbladder ultrasounds and liver ultrasounds which are unremarkable for gallstones or changes in the gallbladder.. Decision to Disposition Date: Jan 15, 2019 Decision to Disposition Time: 23:44 Depart Departure Latest Vital Signs Vital Signs Date Time Temp Pulse Resp B/P (MAP) Pulse Ox O2 Delivery O2 Flow Rate FiO2 01/16/19 00:30 88 143/68 (93) 01/15/19 23:16 98.2 20 94 Room Air Impression: Primary Impression: Non-cardiac chest pain Additional Impressions: Type II diabetes mellitus GERD (gastroesophageal reflux disease) Alcohol intoxication Abnormal LFTs Condition: Improved Disposition: HOME OR SELF-CARE Referrals: DAVE APODACA MD (PCP) Patient Instructions: Chest Pain (ED) Additional Instructions: Follow-up with your primary care as planned this week for an outpatient treadmill to rule out cardiac causes of your chest pain Problem Qualifiers Additional Impressions: Type II diabetes mellitus Diabetes mellitus rodent exterminator insulin use: with nursing home use Diabetes mellitus complication status: without complication Qualified Codes: E11.9 - Type 2 diabetes mellitus without complications; Z79.4 - alf (current) use of insulin GERD (gastroesophageal reflux disease) Esophagitis presence: esophagitis presence not specified Qualified Codes: K21.9 - Gastro-esophageal reflux disease without esophagitis Alcohol intoxication Complication of substance-induced condition: uncomplicated Qualified Codes: F10.920 - Alcohol use, unspecified with intoxication, uncomplicated SOLOMON TELLEZ DO Jan 15, 2019 23:14
[2019-01-15] MEDS ORDERED: MAG HYD/AL HYD/SIMETH 30ML UDC PO ONE (23:25)
[2019-01-15] MEDS ORDERED: LIDOCAINE 2% VISC SLN 15ML UDC PO ONE (23:25)
[2019-01-15 23:26] LABS: PLATELET COUNT, AUTOMATED 253 K/uL (150-450)
[2019-01-15] MEDS ORDERED: PROMETHAZINE 25 MG/ML 1 ML AMP IVP ONE (23:35)
--- NOTE | 2019-01-16 00:18 | EKG ---
FACILITY: [facility] - [place] PATIENT NAME: NAVARRO ALANIZ : [id number] MR: [id number] V: [id number] EXAM DATE: ORDERING PHYSICIAN: SOLOMON TELLEZ TECHNOLOGIST: NAVJOT Padilla Reason : Blood Pressure : / mmHG Vent. Rate : 110 BPM Atrial Rate : 110 BPM P-R Int : 146 ms QRS Dur : 096 ms QT Int : 346 ms P-R-T Axes : 053 057 044 degrees QTc Int : 468 ms Sinus tachycardia Otherwise normal ECG When compared with ECG of 19-NOV-2018 22:05, No significant change was found Confirmed by JESSICA ROSE ([id number]) on 01/16/2019 6:35:00 AM Referred By: Confirmed By:JESSICA ROSE
[2019-01-16 00:30] VITALS: BP 143/68
--- NOTE | 2019-01-16 00:41 | RADIOLOGY IMAGING REPORT ---
FACILITY: [facility] PATIENT NAME: Jomar Morrell : 1980 MR: [id number] V: [id number] EXAM DATE: ORDERING PHYSICIAN: SOLOMON TELLEZ TECHNOLOGIST: Location: [facility] - [place] Patient: Jomar Morrell : 1980 Visit/Account:[id number] Date of Sevice: 01/15/2019 PORTABLE CHEST: Indication: Chest pain. Technique: A single frontal film was obtained. Comparison: 11/19/2018 Skeletal and soft tissue structures: Intact and unremarkable. Heart and mediastinum: Within normal limits. Lung brooks: Well-expanded. There is chronic linear scarring at the left base. No acute process is id entified. There is no vascular congestion. Pleural spaces: Unremarkable. Impression: No acute process or significant change. Report Dictated By: Willi Spears MD at 01/16/2019 12:32 AM Report E-Signed By: Willi Spears MD at 01/16/2019 12:34 AM WSN:[id number]
== END 2019-01-16 00:46 | disposition home or self-care (01) ==
LOC: ER 23:14
DX: R07.89 Other chest pain (principal); E11.9 Type 2 diabetes mellitus without complications; K21.9 Gastro-esophageal reflux disease without esophagitis; R94.5 Abnormal results of liver function studies; F10.120 Alcohol abuse with intoxication, uncomplicated; Y90.7 Blood alcohol level of 200-239 mg/100 ml; F17.210 Nicotine dependence, cigarettes, uncomplicated
CPT/HCPCS: 71045; 83880; 84484; 85025; 93005; 96374; 99284; G0480; J2550; 80320; 82040; 82247; 82310; 82374; 82435; 82565; 82947; 84075; 84132; 84155; 84295; 84450; 84460; 84520